=== PATIENT | male | born 1965 | race Caucasian/White ===

== ENCOUNTER → 2017-01-12 | Outpatient (CLI) | payer OTHER ==
[2017-01-15 21:38] LABS: HEPATITIS C RNA TMA QUAL Detected
== END ==
LOC: C.LABUPHEI 10:23
PROVIDERS: ATTEND Nurse Practitioner Family
DX: M62.81 Muscle weakness (generalized) (principal)

== ENCOUNTER → 2017-01-14 | Outpatient (CLI) | payer OTHER ==
[2017-01-14 10:03] LABS: BASO ABS # 0.07 K/uL (0-0.2); COMPLETE YES; EOS % 3.3 %; HEMATOCRIT 39.3 % (42-52); IG% 0.1 %; LYMPH % 39.7 %; LYMPH ABS # 2.87 K/uL (1.2-3.4); MEAN CELL VOLUME 101.3 fL (80-100); MEAN CORPUSCULAR HGB CONC 33.6 g/dl (32-36); MEAN PLATELET VOLUME 10.5 fL (7.4-10.4); MONO % 11.6 %; NEUT % 44.3 %; PLATELET COUNT 258 K/uL (130-400); RED BLOOD COUNT 3.88 M/uL (4.7-6.1); WHITE BLOOD COUNT 7.23 K/uL (4.8-10.8)
[2017-01-14 10:44] LABS: ALT/SGPT 91 U/L (12-78); AST/SGOT 38 U/L (15-37); BLOOD UREA NITROGEN 17 mg/dl (7-18); BUN/CREATININE RATIO 16.9 (10-20); CALCIUM 8.8 mg/dl (8.5-10.1); CARBON DIOXIDE 24 mmol/L (21-32); CHLORIDE 108 mmol/L (98-107); GLUCOSE 106 mg/dl (70-99); POTASSIUM 3.7 mmol/L (3.5-5.1); SODIUM 142 mmol/L (136-145)
[2017-01-14 10:47] LABS: ALB/GLOB RATIO 0.7 (0.9-2); ALKALINE PHOSPHATASE 62 U/L (45-117)
[2017-01-16 11:39] LABS: HEPATITIS C VIRAL RNA(LOG) PCR 5.78 LOG IU/ML (<1.18)
== END ==
LOC: C.LABUPHEI 09:14
PROVIDERS: ATTEND Family Medicine
DX: F10.239 Alcohol dependence with withdrawal, unspecified (principal)

== ENCOUNTER → 2017-02-10 | Outpatient (CLI) | payer OTHER ==
[2017-02-10 12:12] LABS: BASO % 0.9 %; BASO ABS # 0.06 K/uL (0-0.2); COMPLETE YES; EOS % 2.8 %; HEMATOCRIT 43.6 % (42-52); IG% 0.1 %; LYMPH ABS # 2.35 K/uL (1.2-3.4); MEAN CORPUSCULAR HEMOGLOBIN 33.7 pg (25-34); MEAN CORPUSCULAR HGB CONC 34.4 g/dl (32-36); MEAN PLATELET VOLUME 10.6 fL (7.4-10.4); MONO % 9.2 %; PLATELET COUNT 246 K/uL (130-400); RED BLOOD COUNT 4.45 M/uL (4.7-6.1); WHITE BLOOD COUNT 6.71 K/uL (4.8-10.8)
[2017-02-10 12:20] LABS: PROTHROMBIN TIME (PATIENT) 10.9 SECONDS (9.0-12.0)
[2017-02-10 12:33] LABS: BENZODIAZEPINE, URINE NEG (NEG); COCAINE,URINE NEG (NEG); PHENCYCLIDINE, URINE NEG (NEG)
[2017-02-10 12:39] LABS: ALT/SGPT 147 U/L (12-78); BLOOD UREA NITROGEN 16 mg/dl (7-18); BUN/CREATININE RATIO 14.4 (10-20); CALCIUM 9.5 mg/dl (8.5-10.1); CARBON DIOXIDE 23 mmol/L (21-32); CHLORIDE 108 mmol/L (98-107); GLUCOSE 121 mg/dl (70-99); POTASSIUM 3.6 mmol/L (3.5-5.1); SODIUM 139 mmol/L (136-145)
[2017-02-10 12:42] LABS: ALB/GLOB RATIO 0.7 (0.9-2); ALKALINE PHOSPHATASE 64 U/L (45-117); AST/SGOT 87 U/L (15-37)
[2017-02-14 17:28] LABS: HEPATITIS C VIRAL RNA BY PCR 496000 IU/ML (<15); LIVER FIBR APOLIPOPROTEIN A-1 91 mg/dL (94-176); LIVER FIBROS ALPHA-2-MACROGLOB 428 mg/dL (106-279); LIVER FIBROSIS GGT 71 U/L (3-95); NECROINFLAMMATION ACT GRADE A3; NECROINFLAMMATION ACT SCORE 0.78
== END | disposition home or self-care (01) ==
LOC: C.LAB1850 10:57
PROVIDERS: ATTEND Internal Medicine Infectious Disease
DX: Z00.00 Encounter for general adult medical examination without abnormal findings (principal); B18.2 Chronic viral hepatitis C

== ENCOUNTER → 2017-02-24 | Outpatient (CLI) | payer OTHER | END | disposition home or self-care (01) | LOC: C.LAB1850 10:50 | PROVIDERS: ATTEND Internal Medicine Infectious Disease | DX: B18.2 Chronic viral hepatitis C (principal) ==

== ENCOUNTER 2017-04-21 13:25 | Inpatient (IN) | payer OTHER ==
[~2017-04-21] VITALS: Ht 182.9 cm; Wt 105.9 kg
[2017-04-21] MEDS ORDERED: PROPOFOL IV EMULSION 10 MG/ML 100 ML VIAL IV ONE (13:33)
[2017-04-21] MEDS ORDERED: SODIUM CHLORIDE 0.9% 250ML 250 ML IV STA (13:33)
[2017-04-21] MEDS ORDERED: SODIUM CHLORIDE 0.9% 1000ML 1,000 ML IV STA (13:33)
--- NOTE | 2017-04-21 13:36 | EMERGENCY ROOM VISIT NOTE ---
History Report prepared by Lisa: Akosua Menard Under the Supervision of: Dr. Kaleigh Munguia M.D. First contact with patient: 13:23 Chief Complaint: CHOKING Stated Complaint: RESPIRATORY/INTUBATED History of Present Illness The patient is a 51 year old male who presents to the Emergency Room with complaints of choking occurring shortly prior to arrival. Per EMS, the patient was standing upon arrival with coarse respiratory sounds on non-rebreather. EMS states that 3 large pieces of pork chop were removed from the patient's trachea. Per EMS, the patient was then intubated. The patient was given 3 versed , 50 ketamine, and 80 rocuronium prior to arrival. Limited HPI secondary due intubation. Source of History: EMS History Limited By: intubation Onset: shortly prior to arrival Position: other (global) Quality: other (choking) Review of Systems Limited ROS secondary to intubation. Past Medical & Surgical Medical Problems: (1) Respiratory arrest Unable to obtain medical history sheet secondary to intubation. Family History Unable to obtain medical history sheet secondary to intubation. Social History Alcohol Use: none Drug Use: none Marital Status: in relationship Housing Status: long term Occupation Status: disabled Unable to obtain medical history sheet secondary to intubation. Current/Historical Medications Scheduled Aspirin (Aspirin Adult Low Dose), 81 MG PO DAILY Benztropine Mesylate (Benztropine Mesylate), 0.5 MG PO DAILY Clindamycin Hcl (Cleocin), 2 CAP PO TID Clopidogrel (Plavix), 75 MG PO QAM Divalproex Sodium (Depakote Er), 250 MG PO DAILY Folic Acid (Folvite), 1 MG PO DAILY Gabapentin (Neurontin), 300 MG PO BID Levofloxacin (Levaquin), 1 TAB PO DAILY Lisinopril (Zestril), 40 MG PO DAILY Mirtazapine Soltab (Remeron Soltab), 30 MG PO HS Multivitamin (Multivitamin), 1 TAB PO DAILY Olanzapine (Zyprexa), 10 MG PO HS Quetiapine Fumarate (Seroquel), 50 MG PO BID Thiamine Hcl (Vitamin B-1), 100 MG PO DAILY Allergies Coded Allergies: No Known Allergies (Unverified , 04/21/17) Physical Exam Vital Signs Date Time Temp Pulse Resp B/P (MAP) Pulse Ox O2 Delivery O2 Flow Rate FiO2 04/21/17 15:41 97/65 04/21/17 15:36 93/66 04/21/17 15:31 77 14 91/68 97 04/21/17 15:26 107/85 04/21/17 15:21 99/68 04/21/17 15:16 77 14 94/70 98 04/21/17 15:14 36.5 77 13 94/70 98 Oxymask 6.0 04/21/17 15:11 97/69 04/21/17 15:06 96/73 04/21/17 15:01 95/65 04/21/17 15:00 85 16 97 04/21/17 14:55 92 17 95 04/21/17 14:50 105 15 95 04/21/17 14:47 118/88 04/21/17 14:45 104 18 94 04/21/17 14:40 96 18 95 04/21/17 14:35 100 14 127/81 94 04/21/17 14:31 118/82 04/21/17 14:30 98 15 127/81 94 Mechanical Ventilator 50 04/21/17 14:30 99 17 95 04/21/17 14:29 120/86 04/21/17 14:25 0 04/21/17 14:20 0 04/21/17 14:15 119 161/115 95 Mechanical Ventilator 50 04/21/17 14:15 22 04/21/17 14:14 161/115 04/21/17 14:13 188/128 04/21/17 14:10 107 18 94 04/21/17 14:05 104 18 95 04/21/17 14:02 122/89 04/21/17 14:00 103 18 91 04/21/17 13:55 106 16 94 04/21/17 13:50 110 19 94 04/21/17 13:50 94 04/21/17 13:46 145/93 04/21/17 13:45 109 18 94 04/21/17 13:40 112 20 94 04/21/17 13:35 112 16 94 04/21/17 13:34 50 04/21/17 13:31 158/98 04/21/17 13:30 108 04/21/17 13:30 105 18 95 04/21/17 13:29 95 Mechanical Ventilator 50 95 04/21/17 13:29 136/100 04/21/17 13:29 108 18 120/93 95 Mechanical Ventilator 50 04/21/17 13:27 120/93 Physical Exam Vital signs reviewed. General: Critically ill male. Intubated. HEENT: No scleral icterus, PERRLA, neck supple. Atraumatic. Cardiovascular: Regular rate and rhythm, no extra sounds. Pulmonary: Clear to auscultation bilaterally, normal work of breathing. Abdomen: Soft, nontender, nondistended, positive bowel sounds. Musculoskeletal: Atraumatic, no peripheral edema. Neurologic: Sedated. Unable to follow commands due to medications. Skin: Warm, dry, no rash Medical Decision & Procedures ER Provider Diagnostic Interpretation: Radiology results as stated below per my review and radiologist interpretation: HEAD WITHOUT CONTRAST (CT) CT DOSE: 537.48 mGy.cm HISTORY: Trauma intubation, aspiration TECHNIQUE: Multiaxial CT images of the head were performed without the use of intravenous contrast. A dose lowering technique was utilized adhering to the principles of ALARA. Comparison: None. Findings: Considerable hypertrophic change of the nasal turbinates. Trace fluid within the right maxillary sinus. Considerable soft tissue edematous change of the posterior nasal and oropharynx. Brain demonstrates areas of encephalomalacia of the temporal lobe and inferior frontal lobe regions. A small focus of encephalomalacia over the left frontal and right parietal occipital region is also present. These are considered nonacute. There is no midline shift. The calvarium and skull base are intact. The ventricles and sulci are within normal limits. There is no mass, hematoma, midline shift, or acute infarct. Impression: 1. Findings consistent with old posttraumatic or postischemic changes involving the temporal lobe regions, final lobes, as well as right parietal occipital lobe. 2. No acute intracranial abnormality. 3. Edematous change of the structures of the posterior and mid nasopharyngeal and superior oropharyngeal region. The above report was generated using voice recognition software. It may contain grammatical, syntax or spelling errors. Electronically signed by: Kevin Valentine M.D. 04/21/2017 2:31 PM Dictated Date/Time: 04/21/2017 2:29 PM CHEST ONE VIEW PORTABLE HISTORY: 51 years-old Male aspiration acute aspiration COMPARISON: None available TECHNIQUE: Supine AP view of the chest FINDINGS: Cardiac silhouette is within normal limits. Endotracheal tube is present overlying the midline, 5.5 cm superior to the edita. Lungs are hypoinflated with hazy opacities noted throughout the left lung, notably within the perihilar distribution. The patient is slightly rotated to the left. Ill-defined left basilar opacity is also noted. The right lung is generally clear. No pneumothorax or large pleural effusion. The bones are grossly intact. There is gaseous distention of the stomach. IMPRESSION: 1. Endotracheal tube terminates 5.5 cm superior to the edita. 2. Hypoinflated lungs with bronchovascular crowding, hazy left perihilar and left basilar opacities suggesting atelectasis or pneumonitis. 3. Mild gaseous distention of the stomach. The above report was generated using voice recognition software. It may contain grammatical, syntax or spelling errors. Electronically signed by: Mane Durand M.D. 04/21/2017 1:52 PM Dictated Date/Time: 04/21/2017 1:50 PM Laboratory Results Date/Time Source Procedure Growth Status 04/21/17 00:00 Nasal MRSA DNA Surveillance Screen - Final Specimen Negative for MRSA by DNA Probe Complete Laboratory results per my review. Medications Administered Medications (Trade) Dose Ordered Sig/Estrella Route Start Time Stop Time Status Last Admin Dose Admin Propofol (Diprivan Iv Emulsion 100ml Vial) 1 dose UD PRN IV 04/21/17 13:45 04/21/17 17:01 DC 04/21/17 13:47 1 DOSE Sodium Chloride 1,000 ml @ 125 mls/hr Q8H STAT IV 04/21/17 13:33 04/21/17 17:01 DC 04/21/17 13:48 125 MLS/HR Sodium Chloride 250 ml @ 999 mls/hr Q16M STAT IV 04/21/17 13:33 04/21/17 13:48 DC 04/21/17 13:33 999 MLS/HR ECG Indication: other (respiratory arrest) Rate (beats per minute): 98 Rhythm: normal sinus Findings: no acute ischemic change, no ectopy, other (left axis deviation) ED Course 1328: Past medical records reviewed. The patient was evaluated in room B1. A complete history and physical examination was performed. 1333: Ordered Sodium Chloride 250 ml @ 999 mls/hr IV, Sodium Chloride 1,000 ml @ 125 mls/hr IV, Propofol 1 dose IV. 1345: Ordered Propofol 1 dose IV. 1440: The patient will be extubated. 1445: I reviewed the patient's case with Dara NAVAS. She will evaluate the patient for further management. 1505: I checked on the patient. 1520: Upon reevaluation, the patient is resting with supplemental O2 in place, extubated and tolerating well. The patient will be evaluated by hospitalist for further management and care. Medical Decision The patient is a 51 year old male who presents to the ED with choking. Differentials include aspiration, cardiac arrhythmia, pneumothorax, and intracranial hemorrhage. This pt was evaluated and appeared to be in no distress. IV access was obtained and lab work was drawn. Pt was placed on the filler shaker. Pt was sedated with a propofol drip. CXR was performed and reveals ETT 5.5 cm above the edita, hypoinflated lungs. CT head was performed and reveals no acute abnl , large previous infarct. IV access had been obtained and lab work reveals a mild bump of troponin and liver enzymes. EKG reveals no acute ischemia, this is likely demand mediated. Pt was difficult to sedate, was breathing on his own and attempting to d/c ETT. Sedation was stopped and respiratory care was called to extubate the patient. He tolerated this well, his mother was at the bedside. His case was d/w the hospitalist service who will evaluate for further management. Medication Reconcilliation Current Medication List: was personally reviewed by me Blood Pressure Screening Patient's blood pressure: Normal blood pressure will be monitored by hospitalist Consults Time Called: 1410 [facility] Call: [phone] I reviewed the patient's case with Dara NAVAS. She will evaluate the patient for further management. Impression Primary Impression: Respiratory failure Additional Impression: Elevated troponin Critical Care I have personally spent greater than 30 minutes of critical care time in the direct management of this patient. This includes bedside care, interpretation of diagnostic studies, and testing, discussion with consultants, patient, and family members, and other required patient management activities. This 30 minutes is in excess of all separately billable procedures. Scribe Attestation The scribe's documentation has been prepared under my direction and personally reviewed by me in its entirety. I confirm that the note above accurately reflects all work, treatment, procedures, and medical decision making performed by me. Departure Information Dispostion Being Evaluated By Hospitalist Prescriptions Clindamycin Hcl (CLEOCIN) 300 Mg Cap 2 CAP PO TID for 2 Days, #12 CAP 0 Refills Prov: Bryon Alonzo MD 04/23/17 Levofloxacin (LEVAQUIN) 500 Mg Tab 1 TAB PO DAILY for 2 Days, #2 TAB 0 Refills Prov: Bryon Alonzo MD 04/23/17 Referrals Nelson Vann M.D. (PCP) Patient Instructions My [facility] Problem Qualifiers
[2017-04-21] MEDS ORDERED: PROPOFOL IV EMULSION 10 MG/ML 100 ML VIAL IV PRN (13:45)
--- NOTE | 2017-04-21 13:54 | DIAGNOSTIC IMAGING REPORT ---
CHEST ONE VIEW PORTABLE HISTORY: 51 years-old Male aspiration acute aspiration COMPARISON: None available TECHNIQUE: Supine AP view of the chest FINDINGS: Cardiac silhouette is within normal limits. Endotracheal tube is present overlying the midline, 5.5 cm superior to the edita. Lungs are hypoinflated with hazy opacities noted throughout the left lung, notably within the perihilar distribution. The patient is slightly rotated to the left. Ill-defined left basilar opacity is also noted. The right lung is generally clear. No pneumothorax or large pleural effusion. The bones are grossly intact. There is gaseous distention of the stomach. IMPRESSION: 1. Endotracheal tube terminates 5.5 cm superior to the edita. 2. Hypoinflated lungs with bronchovascular crowding, hazy left perihilar and left basilar opacities suggesting atelectasis or pneumonitis. 3. Mild gaseous distention of the stomach. The above report was generated using voice recognition software. It may contain grammatical, syntax or spelling errors. Electronically signed by: Mane Durand M.D. 04/21/2017 1:52 PM Dictated Date/Time: 04/21/2017 1:50 PM
[2017-04-21 14:14] LABS: BASO % 0.3 %; BASO ABS # 0.03 K/uL (0-0.2); COMPLETE YES; EOS % 1.3 %; HEMATOCRIT 43.8 % (42-52); IG% 0.4 %; LYMPH % 20.4 %; LYMPH ABS # 1.84 K/uL (1.2-3.4); MEAN CELL VOLUME 97.1 fL (80-100); MEAN CORPUSCULAR HEMOGLOBIN 33.5 pg (25-34); MEAN CORPUSCULAR HGB CONC 34.5 g/dl (32-36); MEAN PLATELET VOLUME 10.5 fL (7.4-10.4); MONO % 10.2 %; NEUT % 67.4 %; PLATELET COUNT 206 K/uL (130-400); RED BLOOD COUNT 4.51 M/uL (4.7-6.1); WHITE BLOOD COUNT 9.01 K/uL (4.8-10.8)
[2017-04-21 14:32] LABS: BUN/CREATININE RATIO 10.6 (10-20); CALCIUM 8.8 mg/dl (8.5-10.1); CREATININE 1.26 mg/dl (0.60-1.40); MAGNESIUM 2.2 mg/dl (1.8-2.4); POTASSIUM 3.5 mmol/L (3.5-5.1)
--- NOTE | 2017-04-21 14:33 | DIAGNOSTIC IMAGING REPORT ---
HEAD WITHOUT CONTRAST (CT) CT DOSE: 537.48 mGy.cm HISTORY: Trauma intubation, aspiration TECHNIQUE: Multiaxial CT images of the head were performed without the use of intravenous contrast. A dose lowering technique was utilized adhering to the principles of ALARA. Comparison: None. Findings: Considerable hypertrophic change of the nasal turbinates. Trace fluid within the right maxillary sinus. Considerable soft tissue edematous change of the posterior nasal and oropharynx. Brain demonstrates areas of encephalomalacia of the temporal lobe and inferior frontal lobe regions. A small focus of encephalomalacia over the left frontal and right parietal occipital region is also present. These are considered nonacute. There is no midline shift. The calvarium and skull base are intact. The ventricles and sulci are within normal limits. There is no mass, hematoma, midline shift, or acute infarct. Impression: 1. Findings consistent with old posttraumatic or postischemic changes involving the temporal lobe regions, final lobes, as well as right parietal occipital lobe. 2. No acute intracranial abnormality. 3. Edematous change of the structures of the posterior and mid nasopharyngeal and superior oropharyngeal region. The above report was generated using voice recognition software. It may contain grammatical, syntax or spelling errors. Electronically signed by: Kevin Valentine M.D. 04/21/2017 2:31 PM Dictated Date/Time: 04/21/2017 2:29 PM
[2017-04-21 14:39] LABS: CKMB/CK RATIO 0.8 (0-3.0)
[2017-04-21] MEDS ORDERED: ASPI-589 PO (14:56)
[2017-04-21] MEDS ORDERED: CLOP1TAB15 PO (14:56)
[2017-04-21] MEDS ORDERED: FOLI1TAB7 PO (14:56)
[2017-04-21] MEDS ORDERED: MIRT30TA2 PO (14:56)
[2017-04-21] MEDS ORDERED: DIVA250T PO (14:56)
[2017-04-21] MEDS ORDERED: LISI40TA PO (14:56)
[2017-04-21] MEDS ORDERED: AMLO-114 PO (14:56)
[2017-04-21] MEDS ORDERED: QUET1TAB32 PO (14:56)
[2017-04-21] MEDS ORDERED: GABA-113 PO (14:56)
[2017-04-21] MEDS ORDERED: BENZ0.5T2 PO (14:56)
[2017-04-21] MEDS ORDERED: THIA100T11 PO (14:56)
[2017-04-21] MEDS ORDERED: OLAN10TA11 PO (14:56)
[2017-04-21] MEDS ORDERED: HYDR12.55 PO (14:56)
[2017-04-21] MEDS ORDERED: MULT-506 PO (14:56)
[2017-04-21] MEDS ORDERED: ACETAMINOPHEN 325 MG TAB PO PRN (16:15)
[2017-04-21] MEDS ORDERED: ONDANSETRON INJ 2 MG/ML 2 ML VIAL IV PRN (16:15)
--- NOTE | 2017-04-21 16:52 | DIAGNOSTIC IMAGING REPORT ---
(CHEST) THORAX WITHOUT CT DOSE: 730.53 mGy.cm HISTORY: Choking episode. r/o residual foreign body TECHNIQUE: Multiaxial CT images of the chest were performed without contrast. A dose lowering technique was utilized adhering to the principles of ALARA. COMPARISON: Chest 04/21/2017. FINDINGS: Mild motion artifact. This is most pronounced within the lower lobes. Trace mucoid material within the distal trachea and right mainstem bronchus. Small focal areas of consolidation seen within the base of the lower lobes posteriorly. No pneumothorax. No fractures within the visualized osseous structures. The visualized liver, spleen, and adrenal glands are unremarkable. Tiny fat-containing midline epigastric hernia. No radiopaque foreign bodies. The esophagus is normal in course and caliber. No mediastinal or hilar lymphadenopathy. Normal caliber thoracic aorta. The heart is normal in size. Mild calcified plaque within the coronary arteries. IMPRESSION: 1. Trace mucoid material within the distal trachea and right mainstem bronchus. 2. Small focal areas of consolidation within the bases of the lower lobes posteriorly. This could represent atelectasis or pneumonia, possibly secondary to aspiration. Electronically signed by: Chinmay Pickett M.D. 04/21/2017 4:51 PM Dictated Date/Time: 04/21/2017 4:45 PM
[2017-04-21] MEDS: LEVALBUTEROL 1.25MG/0.5ML NEB INH SCH ×2 (17:00→19:11)
[2017-04-21] MEDS: CLINDAMYCIN IV 600 MG in DEXTROSE 5% 50ML 50 ML IV SCH (17:25)
[2017-04-21] MEDS: NSS + 20MEQ KCL 1000ML 1,000 ML IV SCH (17:25)
[2017-04-21 17:26] VITALS: Ht 182.9 cm; Wt 105.9 kg
[2017-04-21] MEDS: LEVOFLOXACIN / D5W 500 MG in PREMIXED IN D5W 100 ML IV SCH (18:00)
[2017-04-21 19:12] VITALS: PULSE 65; O2SAT 98
[2017-04-21 19:19] VITALS: BP 93/63; PULSE 67; TEMP 36.8; O2SAT 97
[2017-04-21 20:00] VITALS: O2SAT 97
[2017-04-21 20:23] LABS: CKMB/CK RATIO 1.7 (0-3.0)
[2017-04-21] MEDS: QUETIAPINE FUMARATE 25 MG TAB PO SCH (21:16)
[2017-04-21] MEDS: MIRTAZAPINE SOLTAB 15 MG PO SCH (21:17)
[2017-04-21] MEDS: OLANZAPINE 10 MG TAB PO SCH (21:17)
[2017-04-21] MEDS: GABAPENTIN 300 MG CAP PO SCH (21:17)
--- NOTE | 2017-04-21 22:46 | HISTORY & PHYSICAL EXAMINATION ---
DATE OF ADMISSION: 04/21/2017 TIME: 8:21 p.m. HISTORY OF PRESENT ILLNESS: The patient history had been obtained from the patient and ____ with the patient's , Winter, at the bedside. The patient is a pleasant 51-year-old male, a resident of [facility] with a history of recent stroke in October 2016, hypertension, presenting with respiratory arrest. Apparently, the patient was having lunch at around noontime when he walked of the dining room, "choking". The staff at the custodial did a Heimlich maneuver and afterwards, the patient was noted to be wheezing and was having stridor. EMS was called. The patient was en route to the hospital, was noted to have respiratory arrest, intubation immediately performed and apparently, during the procedure, pieces of food were obtained. He was sedated during admission. Upon arrival at the ER, the patient's vital signs were as follows: Blood pressure 120/93, pulse rate of 108, saturating 94% on a mechanical ventilator with 50% FiO2. During observation at the ER, the patient started to awaken and was becoming restless, fighting the vent. Hence, the decision was made to activate the patient. Upon activation, the patient was doing well on an oxygen mask vent and nasal cannula, saturating 97% on room air. The patient has received propofol and normal saline at the ER. On my exam, the patient has been examined with the patient's , Winter, at the bedside. The patient was already awake, alert, oriented x2, has good recall of events prior to coming to the hospital. He was denying any active shortness of breath, but reports a few-day history of cough, no fever or chills. He was denying any chest pain, dizziness, headaches, abdominal pain, problems with urination or bowel movement. No other symptoms noted. PERSONAL AND SOCIAL HISTORY: The patient is a user of _[facility] facility after his stroke in October 2016. PAST MEDICAL HISTORY: History of a stroke in October 2016, hypertension, history of drug overdose. MEDICATIONS: The patient takes aspirin 81 mg daily, Plavix 75 mg daily, amlodipine 10 mg daily, HCTZ 25 mg daily, lisinopril 40 mg daily, Depakote 250 mg p.o. daily, gabapentin 300 mg b.i.d., Olanzapine 10 mg daily, Seroquel 50 mg b.i.d. PAST SURGICAL HISTORY: To be obtained. PERSONAL AND SOCIAL HISTORY: History of drug abuse in the past. REVIEW OF SYSTEMS: All 10 systems reviewed and negative, except for the ones mentioned above. PHYSICAL EXAMINATION: VITAL SIGNS: On my examination, blood pressure 94/70, pulse rate 77, respiratory rate of 14, temperature of 36.5, saturating 98% on nasal cannula. GENERAL: The patient is awake, alert, oriented x2, not in distress, speaks in sentences. No accessory muscle use. HEAD AND NECK: Atraumatic and normocephalic. Normal pupils. Full EOMs. No icterus. [place] conjunctivae. ENT: Grossly normal. NECK: No JVD, no lymphadenopathy or thyromegaly. HEART: Normal rate. Regular rhythm. No murmurs. LUNGS: Positive for mild rales at the left base. No wheezing. Good air entry bilaterally. ABDOMEN: Nondistended, soft and nontender. EXTREMITIES: No pedal edema. No rashes noted. NEUROLOGIC: Oriented x3. Cranial nerves II-XII grossly intact. Motor is 5/5 in all extremities. Extension is 100% in all extremities. As per mother, the patient has had poor short-term memory since the stroke and has had some behavioral disturbance as well. LABS: White count ____, hemoglobin 15.1, platelet count is 206. Chemistry: Sodium 137, potassium 3.5, BUN 13, creatinine is 1.26, random glucose 150, magnesium 2.2. AST 77, ALT 132. Troponins 0.082, CK-MB 1.0. IMAGING: Chest x-ray showing an ET-tube terminating ____ edita, hyperinflated lungs bronchovascular crowding, ____ left perihilar, left basilar opacities suggestive of atelectasis or pneumonitis, mild gaseous distention of the stomach. CT head consistent with old posttraumatic and/or post-ischemic changes involving the temporal lobe, right parietal occipital lobe. No acute intracranial abnormality. EKG: Heart rate 98, normal sinus rhythm, no signs of acute ischemia or infarct. ASSESSMENT AND PLAN: This is a 51-year-old male with a history of an acute CVA in October 2016, hypertension, history of drug overdose, possible underlying depression, currently residing the [facility] custod[facility], presenting with a respiratory arrest following a choking episode. 1. Acute respiratory arrest, secondary to a choking episode resolved, status post intubation and extubation within a few hours. 2. At this time, the patient appears to be in stable condition with good oxygenation, status post extubation. We will continue to monitor him closely at the telemetry unit, a speech therapy evaluation will be ordered and for the meantime, he will be placed on a clear liquid diet. The patient has also been evaluated by the intensive care service at the Emergency Room and was deemed fit to be admitted to the telemetry unit for now. 3. Possible left-sided pneumonia, health care associated versus aspiration, as the patient resides in a custodial and has had a stroke event. Currently, the patient is not exhibiting any signs of sepsis and is oxygenating well. We will order a CT chest to further characterize the pneumonia. Also to rule out any remaining foreign bodies. We will start the patient on empiric Levaquin and clindamycin with intravenous fluids and nebulizers q. 6 hours. 4. Mild troponin elevation, likely secondary to respiratory arrest. We will trend patient's cardiac markers and repeat an echo in the morning. An echocardiogram shall be ordered as well. 5. Mild elevation of the LFTs. We will continue to trend for now. 6. History of a cerebrovascular accident, occurred in October 2016. No new focal neurologic deficits. 7. Continue the usual aspirin and Plavix. We will continue to monitor. 8. Hypertension, stable. We will hold amlodipine, lisinopril and HCTZ, as the patient's blood pressure is on the lower side after propofol. We will continue to monitor. 9. Possible underlying psychiatric history with a possible mood disorder. Continue Depakote, olanzapine and Seroquel. 10. Deep venous thrombosis prophylaxis. We will place SCDs for now. May need heparin, Lovenox if he will be admitted longer. CODE STATUS: The patient's a code status has been discussed with the patient's , Winter, at length. She has reiterated that the patient is a full code at this time. We will obtain social service assistance in terms of patient's code status, as, apparently, the patient could be ____. DISPOSITION: The patient is a [facility] resident and anticipates to return to [facility] when medically stable. The case has been discussed with the patient's at length and in detail. All questions have been answered. She is comfortable, understanding with the plan of care.
[2017-04-21 23:31] VITALS: BP 94/64; PULSE 56; TEMP 36.8; O2SAT 98
[2017-04-22] VITALS (10 sets, daily range): BP systolic 97–119; BP diastolic 60–80; PULSE 56–79; TEMP 36.6–36.8; O2SAT 93–99
[2017-04-22] MEDS: CLINDAMYCIN IV 600 MG in DEXTROSE 5% 50ML 50 ML IV SCH ×3 (01:06→17:00)
[2017-04-22] MEDS: NSS + 20MEQ KCL 1000ML 1,000 ML IV SCH ×3 (01:06→17:30)
[2017-04-22 01:21] LABS: CKMB/CK RATIO 1.6 (0-3.0)
[2017-04-22 05:39] LABS: BASO % 0.4 %; BASO ABS # 0.03 K/uL (0-0.2); COMPLETE YES; HEMATOCRIT 37.6 % (42-52); IG% 0.2 %; LYMPH % 40.3 %; LYMPH ABS # 3.26 K/uL (1.2-3.4); MEAN CELL VOLUME 97.4 fL (80-100); MEAN CORPUSCULAR HEMOGLOBIN 33.4 pg (25-34); MEAN CORPUSCULAR HGB CONC 34.3 g/dl (32-36); MEAN PLATELET VOLUME 10.3 fL (7.4-10.4); MONO % 9.7 %; NEUT % 48.4 %; PLATELET COUNT 169 K/uL (130-400); RED BLOOD COUNT 3.86 M/uL (4.7-6.1); WHITE BLOOD COUNT 8.08 K/uL (4.8-10.8)
[2017-04-22 06:09] LABS: BUN/CREATININE RATIO 8.9 (10-20); CALCIUM 7.7 mg/dl (8.5-10.1); CREATININE 1.2 mg/dl (0.60-1.40); POTASSIUM 3.5 mmol/L (3.5-5.1)
[2017-04-22 06:33] LABS: ALB/GLOB RATIO 0.7 (0.9-2)
[2017-04-22] MEDS: LEVALBUTEROL 1.25MG/0.5ML NEB INH SCH ×3 (07:36→19:27)
[2017-04-22] MEDS: CLOPIDOGREL BISULFATE 75 MG TAB PO SCH (08:21)
[2017-04-22] MEDS: GABAPENTIN 300 MG CAP PO SCH ×2 (08:22→21:10)
[2017-04-22] MEDS: ASPIRIN 81 MG ECTAB PO SCH (08:22)
[2017-04-22] MEDS: DIVALPROEX 250 MG EXTENDED REL TAB PO SCH (08:22)
[2017-04-22] MEDS: BENZTROPINE MESYLATE 0.5 MG TAB PO SCH (08:22)
[2017-04-22] MEDS: QUETIAPINE FUMARATE 25 MG TAB PO SCH ×2 (08:23→21:10)
--- NOTE | 2017-04-22 11:11 | ECHOCARDIOGRAM REPORT ---
*NOTICE TO RECEIVING [employer] AGENCY This information is strictly Confidential and protected under [place] law. [place] law prohibits you from making any further disclosure of this information unless further disclosure is expressly permitted by the written consent of the person to whom it pertains or is authorized by law. A general authorization for the release of medical or other information is not sufficient for this purpose. Hospital accepts no responsibility if the information is made available to any other person, INCLUDING THE PATIENT. Interpretation Summary * Name: CURTIS SHARMA Study Date: 04/22/2017 07:11 AM BP: 97/60 mmHg * Patient Location: C.2E\S\E207\S\1 HR: 56 * : 1965 (M/d/yyyy) Gender: Male Height: 72 in * Age: 51 yrs Ethnicity: CA Weight: 240 lb * Ordering Physician: Bryon Alonzo * Referring Physician: Kalina Arellano * Performed By: Nuno Merino RCS * * Reason For Study: Elevated Troponin, S/P Respiratory Arrest * BSA: 2.3 m2 * The study was technically difficult. * There is no comparison study available. * -- Conclusions -- * Ejection Fraction = 55-60%. * There is mild concentric left ventricular hypertrophy. * The apical inferior septum appears thinned and hypokinetic. * No significant valvular pathology visuailzed. * Consider repeat study with IV contrast to improve endocardial resolution. Procedure Details * A complete two-dimensional transthoracic echocardiogram was performed (2D, M-mode, Doppler and color flow Doppler). Left Ventricle * The left ventricle is grossly normal size. * There is mild concentric left ventricular hypertrophy. * Left ventricular systolic function is normal. * Ejection Fraction = 55-60%. * The apical inferior septum appears thinned and hypokinetic. Right Ventricle * The right ventricle is normal size. * The right ventricular systolic function is normal as assessed by tricuspid annular plane systolic excursion (TAPSE) (normal >1.5 cm). Atria * The left atrial size is normal. * Right atrial size is normal. * There is no evidence of atrial septal defect, but resolution does not allow assessment for a patent foramen ovale. Mitral Valve * The mitral valve is normal. * There is no mitral valve stenosis. * Significant mitral regurgitation is absent. Tricuspid Valve * The tricuspid valve is normal. * There is no tricuspid stenosis. * There is trace tricuspid regurgitation. * Doppler findings do not suggest pulmonary hypertension. Aortic Valve * The aortic valve is not well visualized. * Aortic stenosis is absent. * There is no significant aortic regurgitation. Pulmonic Valve * The pulmonary valve is not well seen, but the Doppler examination is normal without significant regurgitation or stenosis. Great Vessels * The aortic root is normal size. Pericardium/Pleural * There is no pericardial effusion. Great Vessels * Normal inferior vena cava diameter and respiratory variation suggests normal central venous pressure. Left Ventricular Diastolic Function * Pulse wave TDI of the anterior and posterior mitral annulas demonstrates normal LV relaxation MMode 2D Measurements and Calculations IVSd 1.3 cm IVSs 1.4 cm LVIDd 4.0 cm LVIDs 2.5 cm LVPWd 1.3 cm LVPWs 1.6 cm IVS/LVPW 1.0 FS 37.4 % EDV(Teich) 69.3 ml ESV(Teich) 22.1 ml EF(Teich) 68.1 % EDV(cubed) 63.2 ml ESV(cubed) 15.5 ml EF(cubed) 75.5 % % IVS thick 10.9 % % LVPW thick 21.2 % LV mass(C)d 184.6 grams LV mass(C)dI 80.2 grams/m\S\2 LV mass(C)s 126.0 grams LV mass(C)sI 54.8 grams/m\S\2 SV(Teich) 47.2 ml SI(Teich) 20.5 ml/m\S\2 SV(cubed) 47.7 ml SI(cubed) 20.7 ml/m\S\2 asc Aorta Diam 3.3 cm EDV(MOD-sp4) 97.0 ml ESV(MOD-sp4) 38.0 ml EF(MOD-sp4) 60.8 % EDV(MOD-sp2) 79.0 ml ESV(MOD-sp2) 37.0 ml EF(MOD-sp2) 53.2 % SV(MOD-sp4) 59.0 ml SI(MOD-sp4) 25.6 ml/m\S\2 SV(MOD-sp2) 42.0 ml SI(MOD-sp2) 18.2 ml/m\S\2 Doppler Measurements and Calculations MV E max nusrat 69.0 cm/sec MV A max nusrat 66.9 cm/sec MV E/A 1.0 MV P1/2t max nusrat 85.7 cm/sec MV P1/2t 67.7 msec MVA(P1/2t) 3.2 cm\S\2 MV dec slope 370.8 cm/sec\S\2 MV dec time 0.36 sec Ao V2 max 128.6 cm/sec Ao max PG 6.6 mmHg Ao max PG (full) 4.9 mmHg LV V1 max PG 1.7 mmHg LV V1 max 66.0 cm/sec PA V2 max 91.2 cm/sec PA max PG 3.3 mmHg TR max nusrat 164.9 cm/sec
--- NOTE | 2017-04-22 12:07 | Progress Note ---
Medicine Progress Note Date & Time of Visit: Apr 22, 2017 at 12:07. Subjective seen resting in bed, alert, oriented x 2 not in distress, comfortable states he feels fine overall denies dyspnea, chest pain, dizziness ,nausea denies any pain keeps repeating, i want food reassured that diet will be advanced after swallow evaluation, he agreed denies other symptoms Objective Last 8 Hrs Date Time Temp Pulse Resp B/P (MAP) Pulse Ox O2 Delivery O2 Flow Rate FiO2 04/22/17 11:40 36.7 60 16 107/64 (78) 99 Room Air 04/22/17 08:18 36.8 59 20 102/80 (87) 93 Room Air 04/22/17 08:00 Room Air Physical Exam: General- oriented x 2, not in distress, speaks in sentences with no effort Head- atraumatic Eyes- PERRL, EOMI, anicteric ENT- oropharynx clear Neck- supple, no JVD, no adenopathy, no thyromegaly Lungs- clear to auscultation and percussion Heart- regular rhythm; no murmur, normal rate Abdomen- normal bowel sounds, soft, nontender Extremities- no pretibial edema, no calf tenderness; peripheral pulses intact Neuro- alert, oriented x 2; no gross focal deficits Skin- warm & dry Laboratory Results: Last 24 Hours Test 04/21/17 13:13 04/21/17 19:42 04/22/17 00:36 04/22/17 05:10 White Blood Count 9.01 K/uL 8.08 K/uL Red Blood Count 4.51 M/uL 3.86 M/uL Hemoglobin 15.1 g/dL 12.9 g/dL Hematocrit 43.8 % 37.6 % Mean Corpuscular Volume 97.1 fL 97.4 fL Mean Corpuscular Hemoglobin 33.5 pg 33.4 pg Mean Corpuscular Hemoglobin Concent 34.5 g/dl 34.3 g/dl Platelet Count 206 K/uL 169 K/uL Mean Platelet Volume 10.5 fL 10.3 fL Neutrophils (%) (Auto) 67.4 % 48.4 % Lymphocytes (%) (Auto) 20.4 % 40.3 % Monocytes (%) (Auto) 10.2 % 9.7 % Eosinophils (%) (Auto) 1.3 % 1.0 % Basophils (%) (Auto) 0.3 % 0.4 % Neutrophils # (Auto) 6.06 K/uL 3.91 K/uL Lymphocytes # (Auto) 1.84 K/uL 3.26 K/uL Monocytes # (Auto) 0.92 K/uL 0.78 K/uL Eosinophils # (Auto) 0.12 K/uL 0.08 K/uL Basophils # (Auto) 0.03 K/uL 0.03 K/uL RDW Standard Deviation 43.8 fL 44.4 fL RDW Coefficient of Variation 12.4 % 12.6 % Immature Granulocyte % (Auto) 0.4 % 0.2 % Immature Granulocyte # (Auto) 0.04 K/uL 0.02 K/uL Sodium Level 137 mmol/L 137 mmol/L Potassium Level 3.5 mmol/L 3.5 mmol/L Chloride Level 101 mmol/L 107 mmol/L Carbon Dioxide Level 25 mmol/L 27 mmol/L Anion Gap 11.0 mmol/L 3.0 mmol/L Blood Urea Nitrogen 13 mg/dl 11 mg/dl Creatinine 1.26 mg/dl 1.20 mg/dl Est Creatinine Clear Calc Drug Dose 86.5 ml/min 90.2 ml/min Estimated GFR () 75.0 79.5 Estimated GFR (Non- 64.7 68.6 BUN/Creatinine Ratio 10.6 8.9 Random Glucose 150 mg/dl 97 mg/dl Calcium Level 8.8 mg/dl 7.7 mg/dl Magnesium Level 2.2 mg/dl 2.0 mg/dl Total Bilirubin 0.6 mg/dl 0.6 mg/dl Direct Bilirubin 0.2 mg/dl Aspartate Amino Transf (AST/SGOT) 77 U/L 59 U/L Alanine Aminotransferase (ALT/SGPT) 132 U/L 103 U/L Alkaline Phosphatase 69 U/L 51 U/L Total Creatine Kinase 118 U/L 203 U/L 289 U/L Creatine Kinase MB 1.0 ng/ml 3.5 ng/ml 4.7 ng/ml Creatine Kinase MB Ratio 0.8 1.7 1.6 Troponin I 0.082 ng/ml 1.370 ng/ml 1.740 ng/ml 1.400 ng/ml Total Protein 8.8 gm/dl 7.1 gm/dl Albumin 3.7 gm/dl 3.0 gm/dl Activated Partial Thromboplast Time 25.3 SECONDS Partial Thromboplastin Ratio 1.0 Globulin 4.1 gm/dl Albumin/Globulin Ratio 0.7 Assessment & Plan ASSESSMENT AND PLAN: This is a 51-year-old male with a history of an acute CVA in October 2016, hypertension, history of drug overdose, possible underlying depression, currently residing the [facility] skilled nursing, presenting with a respiratory arrest following a choking episode. Acute respiratory arrest, secondary to a choking episode resolved, status post intubation and extubation within a few hours. -- remains stable so far continue to monitor Possible left-sided pneumonia, health care associated versus aspiration, as the patient resides in a skilled nursing and has had a stroke event. - CT chest: IMPRESSION: 1. Trace mucoid material within the distal trachea and right mainstem bronchus. 2. Small focal areas of consolidation within the bases of the lower lobes posteriorly. This could represent atelectasis or pneumonia, possibly secondary to aspiration. -- afebrile, no leukocytosis continue empiric Levaquin + Clinda Day 2 Nebs -- s/p Speech Therapy eval, no signs of chika aspiration, but patient very impulsive with eating recommend dental soft diet -- monitor Mild troponin elevation, likely secondary to respiratory arrest. -- echo: hypokinetic apical septum Cardiology consulted, recommend echo with contrast Mild elevation of the LFTs. -- improving History of a cerebrovascular accident, occurred in October 2016. No new focal neurologic deficits. -- Continue the usual aspirin and Plavix Hypertension -- hold amlodipine, lisinopril and HCTZ, as the patient's blood pressure is on the lower side Possible underlying psychiatric history with a possible mood disorder. Continue Depakote, olanzapine and Seroquel. Deep venous thrombosis prophylaxis. -- SCDs CODE STATUS: The patient's a code status has been discussed with the patient's , Winter, at length. She has reiterated that the patient is a full code at this time. We will obtain social service assistance in terms of patient's code status, as, apparently, the patient could be a [place] of the state. DISPOSITION: The patient is a [facility] resident and anticipates to return to [facility] when medically stable. Current Inpatient Medications: Current Inpatient Medications Medications (Trade) Dose Ordered Sig/Estrella Route Start Time Stop Time Status Last Admin Dose Admin Levofloxacin 500 mg/Prmx 100 ml @ 100 mls/hr Q24H IV 04/21/17 17:00 04/28/17 16:59 04/21/17 18:00 100 MLS/HR Clindamycin Phosphate 600 mg/ Dextrose 54 ml @ 100 mls/hr Q8H IV 04/21/17 17:00 04/28/17 16:59 04/22/17 08:21 100 MLS/HR Potassium Chloride/Sodium Chloride 1,000 ml @ 125 mls/hr Q8H IV 04/21/17 17:30 05/21/17 17:29 04/22/17 11:49 125 MLS/HR Aspirin (Ecotrin Tab) 81 mg DAILY PO 04/22/17 09:00 05/22/17 08:59 04/22/17 08:22 81 MG Benztropine Mesylate (Cogentin Tab) 0.5 mg DAILY PO 04/22/17 09:00 05/22/17 08:59 04/22/17 08:22 0.5 MG Clopidogrel Bisulfate (plAVix TAB) 75 mg QAM PO 04/22/17 09:00 05/22/17 08:59 04/22/17 08:21 75 MG Divalproex Sodium (Depakote Extended Rel Tab) 250 mg DAILY PO 04/22/17 09:00 05/22/17 08:59 04/22/17 08:22 250 MG Gabapentin (Neurontin Cap) 300 mg BID PO 04/21/17 21:00 05/21/17 20:59 04/22/17 08:22 300 MG Olanzapine (Zyprexa Tab) 10 mg HS PO 04/21/17 21:00 05/21/17 20:59 04/21/17 21:17 10 MG Quetiapine Fumarate (seroQUEL TAB) 50 mg BID PO 04/21/17 21:00 05/21/17 20:59 04/22/17 08:23 50 MG Mirtazapine (Remeron Solutab) 30 mg HS PO 04/21/17 21:00 05/21/17 20:59 04/21/17 21:17 30 MG Acetaminophen (Tylenol Tab) 650 mg Q4H PRN PO 04/21/17 16:15 05/21/17 16:14 Ondansetron HCl (Zofran Inj) 4 mg Q6H PRN IV 04/21/17 16:15 05/21/17 16:14 Levalbuterol (Xopenex 1.25MG/ 0.5ML Neb) 1.25 mg Q6RWA INH 04/22/17 09:00 05/21/17 15:59
--- NOTE | 2017-04-22 14:21 | DIAGNOSTIC IMAGING REPORT ---
VIDEO SWALLOW CLINICAL HISTORY: 51 years-old Male presenting with assess for aspiration,, concern for foreign body, choking episode. TECHNIQUE: Video fluoroscopic evaluation of swallowing was performed in the AP and lateral projections in conjunction with speech pathology. The patient was administered various textures, including nectar-thick and thin liquid barium, a barium coated wafer, and barium pudding. COMPARISON: Chest CT from 04/21/2017. FINDINGS: There is normal hyoid excursion and epiglottic deflection. Anterior osteophytosis of the lower cervical spine without significant result on swallowing function. Penetration of thin liquids without aspiration. Penetration of nectar thick liquids without aspiration. No aspiration of pudding consistency or solids. The esophagus is grossly normal without evidence of dysmotility or intraesophageal reflux. Normal passage through the gastroesophageal junction. Fluoroscopy dosage (mGy): Not available. Fluoroscopy time: 1.3 minutes. Number of fluoroscopic spot images: 0. IMPRESSION: 1. No aspiration identified. Penetration of liquids. 2. Please see the speech pathologist report for detailed findings and recommendations. Electronically signed by: Ochoa Coffey M.D. 04/22/2017 2:19 PM Dictated Date/Time: 04/22/2017 2:17 PM
[2017-04-22] MEDS: LEVOFLOXACIN / D5W 500 MG in PREMIXED IN D5W 100 ML IV SCH (15:41)
--- NOTE | 2017-04-22 16:49 | Cardiology Consultation ---
Cardiology Consultation Date of Service Apr 22, 2017. Cardiology Consultation I attempted to see Mr. Aguirre cardiology consultation as per the request of Dr. Alonzo for recommendations regarding echocardiogram findings of wall motion abnormality on his echocardiogram today. The ejection fraction was normal at 55-60%. The apical portion of the inferoseptum was noted to be thin and hypokinetic. The patient was apparently in his normal state of health at the [facility] yesterday when he had a choking event in the cafeteria. Bystanders noted him to be choking. He received abdominal thrusts by a bystander and EMS was summoned. He subsequently had low oxygen saturation and apparently suffered a respiratory arrest. Endotracheal tube was placed in the field, and food particles were removed. The patient essentially transferred to the emergency room and he was subsequently successfully extubated. Since hospitalized yesterday, he has had serial troponin readings that of been elevated at 0.82, 1.37, 1.74, and 1.4 ng/ml respectively. When I went to see him in room 207 at 4:40 PM, he was eating his evening meal with the help of the geriatric nursing assistant. He denied any chest discomfort or shortness of breath. I tried to obtain a past medical history on him, and he was either unwilling or unable to provide much in the way of detail of his past medical history. Per his chart, he is in the senior living due to a past history of stroke. He has not been hospitalized at this institution in the past. The patient of course is considered to be at high risk of aspiration given his recent choking event. He was unwilling to cease eating his food to allow me to examine him or to question him further. I have requested a repeat echocardiogram with ultrasound contrast which will be performed tomorrow for better delineation of the subtle septal wall motion abnormality noted on echocardiogram earlier today. At present, given the patient's lack of clinical symptoms, I would speculate that his elevated troponin is due to myocardial strain in the setting of a profound transient hypoxic event. It is difficult to determine is the echocardiogram findings correlate with his recent event or are old. EKG tracings performed yesterday revealed no significant ST changes on 2 separate tracings performed at 1333 and 20:32. Dr. Blair will be assuming rounding service tomorrow, and further recommendations be forthcoming. I am not billing for today's encounter because evaluation is limited due to lack of patient cooperation.
[2017-04-22] MEDS: MIRTAZAPINE SOLTAB 15 MG PO SCH (21:10)
[2017-04-22] MEDS: OLANZAPINE 10 MG TAB PO SCH (21:11)
[2017-04-23] VITALS (8 sets, daily range): BP systolic 88–133; BP diastolic 54–89; PULSE 55–68; TEMP 36.4–37.4; O2SAT 94–99
[2017-04-23] MEDS: CLINDAMYCIN IV 600 MG in DEXTROSE 5% 50ML 50 ML IV SCH ×2 (00:33→08:37)
[2017-04-23 05:50] LABS: BASO % 0.8 %; BASO ABS # 0.05 K/uL (0-0.2); COMPLETE YES; EOS % 2.6 %; HEMATOCRIT 38.3 % (42-52); IG% 0.2 %; LYMPH % 44.4 %; LYMPH ABS # 2.96 K/uL (1.2-3.4); MEAN CORPUSCULAR HEMOGLOBIN 33.5 pg (25-34); MEAN CORPUSCULAR HGB CONC 34.2 g/dl (32-36); MEAN PLATELET VOLUME 10.6 fL (7.4-10.4); MONO % 8.7 %; NEUT % 43.3 %; PLATELET COUNT 194 K/uL (130-400); RED BLOOD COUNT 3.91 M/uL (4.7-6.1); WHITE BLOOD COUNT 6.66 K/uL (4.8-10.8)
[2017-04-23] MEDS: NSS + 20MEQ KCL 1000ML 1,000 ML IV SCH (06:26)
[2017-04-23 06:31] LABS: BUN/CREATININE RATIO 7.9 (10-20); CALCIUM 7.7 mg/dl (8.5-10.1); CREATININE 1.16 mg/dl (0.60-1.40); MAGNESIUM 2.1 mg/dl (1.8-2.4); POTASSIUM 4.1 mmol/L (3.5-5.1)
[2017-04-23] MEDS: LEVALBUTEROL 1.25MG/0.5ML NEB INH SCH (07:03)
[2017-04-23] MEDS: ASPIRIN 81 MG ECTAB PO SCH (08:35)
[2017-04-23] MEDS: GABAPENTIN 300 MG CAP PO SCH (08:36)
[2017-04-23] MEDS: CLOPIDOGREL BISULFATE 75 MG TAB PO SCH (08:36)
[2017-04-23] MEDS: BENZTROPINE MESYLATE 0.5 MG TAB PO SCH (08:37)
[2017-04-23] MEDS: DIVALPROEX 250 MG EXTENDED REL TAB PO SCH (08:37)
[2017-04-23] MEDS: QUETIAPINE FUMARATE 25 MG TAB PO SCH (08:37)
--- NOTE | 2017-04-23 11:20 | ECHOCARDIOGRAM REPORT ---
*NOTICE TO RECEIVING [employer] AGENCY This information is strictly Confidential and protected under [place] law. [place] law prohibits you from making any further disclosure of this information unless further disclosure is expressly permitted by the written consent of the person to whom it pertains or is authorized by law. A general authorization for the release of medical or other information is not sufficient for this purpose. Hospital accepts no responsibility if the information is made available to any other person, INCLUDING THE PATIENT. Interpretation Summary * Name: CURTIS SHARMA Study Date: 04/23/2017 06:30 AM BP: 88/54 mmHg * Patient Location: C.2E\S\E207\S\1 HR: 59 * : 1965 (M/d/yyyy) Gender: Male Height: 72 in * Age: 51 yrs Ethnicity: [place] Weight: 237 lb * Ordering Physician: Zain Lopez DO, [facility] * Referring Physician: Kalina Arellano * Performed By: Juju Lagunas GABRIEL * * Reason For Study: LIMITED FOLLOW- UP/ REASSESS WALL MOTION WITH CONTRAST * BSA: 2.3 m2 * The study was technically adequate. * -- Conclusions -- * Ejection Fraction = 55-60%. * The left ventricular wall motion is normal. Procedure Details * A contrast injection of Definity was performed to improve assessment of LV function. * Contrast was injected into an intravenous site in the right arm. * One vial of Definity ultrasound contrast was diluted in normal saline to a total volume of 10 ml. A total of '6' ml of solution was administered during imaging. * Lot # [id number] of Definity utilized for procedure. * Expiration date 05/09. Left Ventricle * There is no thrombus. * There is mild concentric left ventricular hypertrophy. * Ejection Fraction = 55-60%. * The left ventricular wall motion is normal. MMode 2D Measurements and Calculations IVSd 1.3 cm IVSs 1.7 cm LVIDd 4.3 cm LVIDs 2.9 cm LVPWd 0.85 cm LVPWs 1.5 cm IVS/LVPW 1.5 FS 31.5 % EDV(Teich) 83.1 ml ESV(Teich) 33.5 ml EF(Teich) 59.7 % EDV(cubed) 79.6 ml ESV(cubed) 25.6 ml EF(cubed) 67.8 % % IVS thick 30.9 % % LVPW thick 79.7 % LV mass(C)d 154.1 grams LV mass(C)dI 67.3 grams/m\S\2 LV mass(C)s 171.1 grams LV mass(C)sI 74.7 grams/m\S\2 SV(Teich) 49.6 ml SI(Teich) 21.7 ml/m\S\2 SV(cubed) 54.0 ml SI(cubed) 23.6 ml/m\S\2 LVAd ap4 35.7 cm\S\2 LVLd ap4 8.9 cm EDV(MOD-sp4) 119.9 ml EDV(sp4-el) 121.3 ml LVAs ap4 20.6 cm\S\2 LVLs ap4 7.2 cm ESV(MOD-sp4) 48.6 ml ESV(sp4-el) 50.0 ml EF(MOD-sp4) 59.4 % EF(sp4-el) 58.8 % LVAd ap2 23.2 cm\S\2 LVLd ap2 7.3 cm EDV(MOD-sp2) 58.8 ml EDV(sp2-el) 62.7 ml LVAs ap2 12.8 cm\S\2 LVLs ap2 5.7 cm ESV(MOD-sp2) 23.8 ml ESV(sp2-el) 24.2 ml EF(MOD-sp2) 59.5 % EF(sp2-el) 61.4 % LVLd %diff -22.55 % EDV(MOD-bp) 89.8 ml LVLs %diff -26.44 % ESV(MOD-bp) 38.3 ml EF(MOD-bp) 57.4 % SV(MOD-sp4) 71.2 ml SI(MOD-sp4) 31.1 ml/m\S\2 SV(MOD-sp2) 35.0 ml SI(MOD-sp2) 15.3 ml/m\S\2 SV(MOD-bp) 51.5 ml SI(MOD-bp) 22.5 ml/m\S\2 SV(sp4-el) 71.3 ml SI(sp4-el) 31.1 ml/m\S\2 SV(sp2-el) 38.5 ml SI(sp2-el) 16.8 ml/m\S\2
--- NOTE | 2017-04-23 12:32 | CARDIOLOGY CONSULTATION ---
DATE OF CONSULTATION: 04/23/2017 DATE OF CONSULTATION: 04/23/2017 REASON FOR CONSULTATION: Elevated troponin, abnormal echocardiogram. CHIEF COMPLAINT ON ADMISSION: Choking, hypoxia, intubation. HISTORY OF PRESENT ILLNESS: Mr. Aguirre is a 51-year-old gentleman who suffered a cerebrovascular accident in October 2016. He has resided at [facility] long-term facility since that time. The patient remembers consuming his midday meal and choking on a pork chop. Heimlich maneuver was attempted. The patient began wheezing with stridor. EMS was summoned. The patient had respiratory arrest en route to the hospital and he was intubated. During the procedure, pieces of food were removed from his trachea. Upon arrival to the ER, his vital signs were stable with SaO2 94% on 50% FIO2 on the ventilator. In the Emergency Department, the patient was extubated. He was found to have mildly elevated troponins. No ischemic ECG changes recorded during hospitalization. His troponins have trended downward. Initial resting 2D transthoracic echo suggested possible apical septal wall motion abnormality, though the study was technically limited. A repeat limited echocardiogram was performed this morning with use of intravenous contrast. A repeat study demonstrates normal wall motion. The patient seen and examined at the bedside. Denies chest pain or unusual shortness of breath. 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 Admits to active tobacco use smoking 1 pack per day. Notes mild dyspnea on exertion and cough. No orthopnea, PND, lower extremity edema, or claudication. Offers no other complaints at this time. REVIEW OF SYSTEMS: The pertinent positives are noted above. Comprehensive 10-system review is otherwise negative. PAST MEDICAL HISTORY: 1. Cerebrovascular accident October 2016. 2. Hypertension. 3. Drug overdose. 4. Dyslipidemia, currently not receiving statin therapy. PAST SURGICAL HISTORY: None per record. SOCIAL HISTORY: Active tobacco abuse. Currently resides at [facility] due to recent cerebrovascular accident. FAMILY HISTORY: Negative for premature CAD or sudden cardiac . OUTPATIENT MEDICATIONS: 1. Aspirin 81 mg daily. 2. Plavix 75 mg daily. 3. Amlodipine 10 mg daily. 4. Hydrochlorothiazide 25 mg daily. 5. Lisinopril 40 mg daily. 6. Depakote 250 mg daily. 7. Gabapentin 300 mg twice daily. 8. Olanzapine [address] of the chest performed on admission demonstrates focal areas of consolidation of the base of the left lower lobes consistent with pneumonia related to aspiration. There is trace mucoid material in the distal trachea and right main stem bronchus. CT of the head, old post-traumatic or post-ischemic changes involving the temporal lobe regions and right parietal lobe as well as frontal lobes. No acute intracranial abnormality. LABORATORY DATA: Initial troponin 0.082, peak troponin of 1.740 with a repeat troponin of 1.40. Sodium 142, potassium 4.0, chloride 111, CO2 24, BUN is 9, creatinine is 1.16. Magnesium 2.1, AST 76, ALT 112. INR is 1.0. White blood cell count 6.66, hemoglobin is 13.1, platelet count is 194. PHYSICAL EXAMINATION: VITAL SIGNS: Temperature is 36.7 degrees centigrade, pulse 55 beats per minute and regular, respiratory rate 16 breaths per minute, blood pressure 108/57. SAO2 is 98% on room air. GENERAL: NAD, he is awake and alert. THROAT: His mucous membranes are moist. No scleral icterus. NECK: Supple without JVD or HJR. No carotid bruit. HEART: Regular with a normal S1 and S2. No murmur, rub or gallop. LUNGS: Scant crackles at the left base. No wheezing or rhonchi. ABDOMEN: Soft, nontender. No rebound or guarding. EXTREMITIES: Warm and dry without clubbing, cyanosis or edema. NEUROLOGIC EXAMINATION: Demonstrates no facial asymmetry, no focal neurologic deficit noted. FINAL IMPRESSION: 1. A 51-year-old male admitted with acute hypoxic respiratory failure secondary to choking episode. Mildly elevated troponins secondary to hypoxemia. No ischemic ECG changes. Repeat echocardiogram demonstrates no regional wall motion abnormalities. 2. History of recent cerebrovascular accident with abnormal CT findings listed above. 3. Dyslipidemia -- currently not treated with statin therapy. 4. Mildly elevated transaminases. 5. Hypertension -- controlled. 6. Possible underlying psychiatric disorder. PLAN AND RECOMMENDATIONS: Continue aspirin and Plavix in addition to current antihypertensive medications as noted above. Statin therapy is indicated. It appears his transaminases are elevated. I would recommend further evaluation of elevated transaminases prior to initiating statin therapy. Consider outpatient stress testing for further risk stratification with any symptoms concerning for angina. No further inpatient cardiac testing at this time. Thank you for allowing me to take part in the care of your patient. Will sign off. Please call with questions. SAJAN
[2017-04-23] MEDS ORDERED: LEVO1TAB34 PO (14:58)
[2017-04-23] MEDS ORDERED: CLIN300C2 PO (14:58)
[2017-04-23] MEDS ORDERED: LEVALBUTEROL 1.25MG/0.5ML NEB INH PRN (15:00)
--- NOTE | 2017-04-23 15:04 | Discharge Instructions ---
Discharge Instructions Date of Service Apr 23, 2017. Admission Reason for Admission: Respiratory Distress Discharge Discharge Diagnosis / Problem: RESPIRATORY ARREST SECONDARY TO CHOKING EVENT Discharge Goals Goal(s): Diagnostic testing, Therapeutic intervention Activity Recommendations Activity Level: Ambulates in room Therapies: Physical Therapy, Occupational Therapy, Speech Therapy . Additional Information Patient informed of condition: Yes Advance Directives: No (UNKNOWN) DNR: No (PATIENT IF FULL CODE PER HIS MOTHER) Level of Care: Skilled Communicable Disease: No Prognosis: Stable Instructions / Follow-Up Instructions / Follow-Up PATIENT NEEDS ASSISTANCE WITH FEEDING AT ALL TIMES HE IS VERY IMPULSIVE. HE NEEDS A DENTAL SOFT CUT DIET AND CONTINUED SPEECH THERAPY EVALUATION. ASPIRATION PRECAUTIONS. MONITOR FOR WORSENING SYMPTOMS OF PNEUMONIA. FURTHER WORK UP OF ELEVATED LFTS OUTPATIENT. HE NEEDS TO BE STARTED ON A STATIN BUT LFTS NEED TO BE MONITORED. OUTPATIENT STRESS TEST OUTPATIENT IF WITH SYMPTOMS OF ANGINA. PLEASE REFER TO ACCOMPANYING HOSPITAL DISCHARGE SUMMARY FOR FURTHER DETAILS. Current Hospital Diet Patient's current hospital diet: Regular Diet Discharge Diet Recommended Diet: AHA Diet (Heart Healthy) Diet Texture: Dental Soft (bite-sized) Procedures Procedures Performed: CT HEAD, CT CHEST, ECHO, VIDEOSWALLOW EVALUATION Pending Studies Studies pending at discharge: no Physician Orders On Transfer Special Precautions: PATIENT NEEDS ASSISTANCE WITH FEEDING AT ALL TIMES HE IS VERY IMPULSIVE. HE NEEDS A DENTAL SOFT CUT DIET AND CONTINUED SPEECH THERAPY EVALUATION. ASPIRATION PRECAUTIONS. MONITOR FOR WORSENING SYMPTOMS OF PNEUMONIA. FURTHER WORK UP OF ELEVATED LFTS OUTPATIENT. HE NEEDS TO BE STARTED ON A STATIN BUT LFTS NEED TO BE MONITORED. OUTPATIENT STRESS TEST OUTPATIENT IF WITH SYMPTOMS OF ANGINA. PLEASE REFER TO ACCOMPANYING HOSPITAL DISCHARGE SUMMARY FOR FURTHER DETAILS. Medical Emergencies . Who to Call and When: Medical Emergencies: If at any time you feel your situation is an emergency, please call 911 immediately. . Non-Emergent Contact Non-Emergency issues call your: Primary Care Provider Call Non-Emergent contact if: you have a fever, your pain is not controlled, your pain is worsening, you have any medication questions . Past History Medical & Surgical History: (1) Respiratory failure (2) Elevated troponin (3) Respiratory arrest . "Provider Documentation" section prepared by Bryon Alonzo. . Core Measure Problem Core Measures: None
--- NOTE | 2017-04-23 15:17 | Progress Note ---
Medicine Progress Note Date & Time of Visit: Apr 23, 2017 at 15:05. Subjective patient seen resting in bed, comfortable, somewhat irritable oriented x 2, answers questions appropriately denies shortness of breath, cough is better denies chest pain, dyspnea, dizziness, palpitations ambulates with no problem states he feels fine overall denies other symptoms Objective Last 8 Hrs Date Time Temp Pulse Resp B/P (MAP) Pulse Ox O2 Delivery O2 Flow Rate FiO2 04/23/17 14:40 68 98 04/23/17 12:00 Room Air 04/23/17 11:45 36.4 61 18 133/89 (104) 99 Room Air 04/23/17 08:00 Room Air Physical Exam: General- oriented x 2, not in distress, speaks in sentences with no effort Eyes- EOMI, anicteric Neck- supple, no JVD Lungs- clear breath sounds bilaterally, no rales/wheezes Heart- regular rhythm; no murmur, normal rate Abdomen- normal bowel sounds, soft, nontender Extremities- no pretibial edema, no calf tenderness; peripheral pulses intact Neuro- alert, oriented x 2; no gross focal deficits Skin- warm & dry Laboratory Results: Last 24 Hours Test 04/23/17 05:11 White Blood Count 6.66 K/uL Red Blood Count 3.91 M/uL Hemoglobin 13.1 g/dL Hematocrit 38.3 % Mean Corpuscular Volume 98.0 fL Mean Corpuscular Hemoglobin 33.5 pg Mean Corpuscular Hemoglobin Concent 34.2 g/dl Platelet Count 194 K/uL Mean Platelet Volume 10.6 fL Neutrophils (%) (Auto) 43.3 % Lymphocytes (%) (Auto) 44.4 % Monocytes (%) (Auto) 8.7 % Eosinophils (%) (Auto) 2.6 % Basophils (%) (Auto) 0.8 % Neutrophils # (Auto) 2.89 K/uL Lymphocytes # (Auto) 2.96 K/uL Monocytes # (Auto) 0.58 K/uL Eosinophils # (Auto) 0.17 K/uL Basophils # (Auto) 0.05 K/uL RDW Standard Deviation 45.7 fL RDW Coefficient of Variation 12.8 % Immature Granulocyte % (Auto) 0.2 % Immature Granulocyte # (Auto) 0.01 K/uL Sodium Level 142 mmol/L Potassium Level 4.1 mmol/L Chloride Level 111 mmol/L Carbon Dioxide Level 24 mmol/L Anion Gap 7.0 mmol/L Blood Urea Nitrogen 9 mg/dl Creatinine 1.16 mg/dl Est Creatinine Clear Calc Drug Dose 93.3 ml/min Estimated GFR () 82.9 Estimated GFR (Non- 71.5 BUN/Creatinine Ratio 7.9 Random Glucose 93 mg/dl Calcium Level 7.7 mg/dl Magnesium Level 2.1 mg/dl Total Bilirubin 0.6 mg/dl Direct Bilirubin 0.2 mg/dl Aspartate Amino Transf (AST/SGOT) 76 U/L Alanine Aminotransferase (ALT/SGPT) 112 U/L Alkaline Phosphatase 49 U/L Total Protein 7.1 gm/dl Albumin 3.0 gm/dl Assessment & Plan ASSESSMENT AND PLAN: This is a 51-year-old male with a history of an acute CVA in October 2016, hypertension, history of drug overdose, possible underlying depression, currently residing the [facility], presenting with a respiratory arrest following a choking episode. Acute respiratory arrest, secondary to a choking episode resolved - status post intubation en route to the ER and extubation while at the ER a few hours later -- remained stable while observed in Telemetry unit good O2 saturation on room air -- evaluated by Speech Therapist, recommendations: --Speech Therapy Discharge Instructions * SUMMARY/RECOMMENDATIONS: This patient presents with mild brayan-pharyngeal dysphagia. Recommendations are as follows: 1.Dental diet, thin liquids. 2.Aspiration precautions, straws OK, fully upright for meals and for 30 minutes after meals. 3.Supervision with meals. Will require assistance with taking small bites/sips and eating at a slow rate. 4. Would benefit from continued speech therapy at discharge back to SNF. Possible left-sided pneumonia, health care associated versus aspiration - as the patient resides in a half-way and has had a stroke event. - CT chest: IMPRESSION: 1. Trace mucoid material within the distal trachea and right mainstem bronchus. 2. Small focal areas of consolidation within the bases of the lower lobes posteriorly. This could represent atelectasis or pneumonia, possibly secondary to aspiration. -- remained afebrile, no leukocytosis received Levaquin + Clinda IV x 3 days, continue for 2 more days, then monitor Nebs given as well -- monitor Mild troponin elevation, likely secondary to respiratory arrest -- EKG no ischemia -- initial echo: hypokinetic apical septum repeat echo with contrast: -- Conclusions -- * Ejection Fraction = 55-60%. * The left ventricular wall motion is normal. Cardiology consulted Dr. Blair, mild troponin elevation likely from respiratory arrest Mild elevation of the LFTs. -- please continue to work up and monitor as outpatient -- patient has to be on a statin, but LFT needs to be monitored History of a cerebrovascular accident -- occurred in October 2016. -- No new focal neurologic deficits. -- Continue the usual aspirin and Plavix -- patient has to be on a statin, but LFT needs to be monitored Hypertension -- BP on the lower side IV fluids given -- BP improving -- resume Lisinopril and hold Amlodipine and HCTZ (resume accordingly based on BP trend)> Possible underlying psychiatric history with a possible mood disorder. Continue Depakote, olanzapine and Seroquel. Disposition return to [facility] ff up with Attending at the [facility] and/or PCP Current Inpatient Medications: Current Inpatient Medications Medications (Trade) Dose Ordered Sig/Estrella Route Start Time Stop Time Status Last Admin Dose Admin Levofloxacin 500 mg/Prmx 100 ml @ 100 mls/hr Q24H IV 04/21/17 17:00 04/28/17 16:59 04/22/17 15:41 100 MLS/HR Clindamycin Phosphate 600 mg/ Dextrose 54 ml @ 100 mls/hr Q8H IV 04/21/17 17:00 04/28/17 16:59 04/23/17 08:37 100 MLS/HR Aspirin (Ecotrin Tab) 81 mg DAILY PO 04/22/17 09:00 05/22/17 08:59 04/23/17 08:35 81 MG Benztropine Mesylate (Cogentin Tab) 0.5 mg DAILY PO 04/22/17 09:00 05/22/17 08:59 04/23/17 08:37 0.5 MG Clopidogrel Bisulfate (plAVix TAB) 75 mg QAM PO 04/22/17 09:00 05/22/17 08:59 04/23/17 08:36 75 MG Divalproex Sodium (Depakote Extended Rel Tab) 250 mg DAILY PO 04/22/17 09:00 05/22/17 08:59 04/23/17 08:37 250 MG Gabapentin (Neurontin Cap) 300 mg BID PO 04/21/17 21:00 05/21/17 20:59 04/23/17 08:36 300 MG Olanzapine (Zyprexa Tab) 10 mg HS PO 04/21/17 21:00 05/21/17 20:59 04/22/17 21:11 10 MG Quetiapine Fumarate (seroQUEL TAB) 50 mg BID PO 04/21/17 21:00 05/21/17 20:59 04/23/17 08:37 50 MG Mirtazapine (Remeron Solutab) 30 mg HS PO 04/21/17 21:00 05/21/17 20:59 04/22/17 21:10 30 MG Acetaminophen (Tylenol Tab) 650 mg Q4H PRN PO 04/21/17 16:15 05/21/17 16:14 Ondansetron HCl (Zofran Inj) 4 mg Q6H PRN IV 04/21/17 16:15 05/21/17 16:14 Levalbuterol (Xopenex 1.25MG/ 0.5ML Neb) 1.25 mg Q6H PRN INH 04/23/17 15:00 05/21/17 15:59
--- NOTE | 2017-04-23 15:23 | Discharge Summary ---
Discharge Summary Date of Service Apr 23, 2017. Discharge Summary Admission Date: Apr 21, 2017 at 15:52 Discharge Date: Apr 23, 2017 Discharge Disposition: halfway facility Principal Diagnosis: Acute respiratory arrest, secondary to a choking episode, resolved Secondary Diagnoses/Problems: Please refer to hospital course below. Procedures: HEAD WITHOUT CONTRAST (CT) CT DOSE: 537.48 mGy.cm HISTORY: Trauma intubation, aspiration TECHNIQUE: Multiaxial CT images of the head were performed without the use of intravenous contrast. A dose lowering technique was utilized adhering to the principles of ALARA. Comparison: None. Findings: Considerable hypertrophic change of the nasal turbinates. Trace fluid within the right maxillary sinus. Considerable soft tissue edematous change of the posterior nasal and oropharynx. Brain demonstrates areas of encephalomalacia of the temporal lobe and inferior frontal lobe regions. A small focus of encephalomalacia over the left frontal and right parietal occipital region is also present. These are considered nonacute. There is no midline shift. The calvarium and skull base are intact. The ventricles and sulci are within normal limits. There is no mass, hematoma, midline shift, or acute infarct. Impression: 1. Findings consistent with old posttraumatic or postischemic changes involving the temporal lobe regions, final lobes, as well as right parietal occipital lobe. 2. No acute intracranial abnormality. 3. Edematous change of the structures of the posterior and mid nasopharyngeal and superior oropharyngeal region. CHEST ONE VIEW PORTABLE HISTORY: 51 years-old Male aspiration acute aspiration COMPARISON: None available TECHNIQUE: Supine AP view of the chest FINDINGS: Cardiac silhouette is within normal limits. Endotracheal tube is present overlying the midline, 5.5 cm superior to the edita. Lungs are hypoinflated with hazy opacities noted throughout the left lung, notably within the perihilar distribution. The patient is slightly rotated to the left. Ill-defined left basilar opacity is also noted. The right lung is generally clear. No pneumothorax or large pleural effusion. The bones are grossly intact. There is gaseous distention of the stomach. IMPRESSION: 1. Endotracheal tube terminates 5.5 cm superior to the edita. 2. Hypoinflated lungs with bronchovascular crowding, hazy left perihilar and left basilar opacities suggesting atelectasis or pneumonitis. 3. Mild gaseous distention of the stomach. The above report was generated using voice recognition software. It may contain grammatical, syntax or spelling errors. Electronically signed by: Mane Durand M.D. 04/21/2017 1:52 PM (CHEST) THORAX WITHOUT CT DOSE: 730.53 mGy.cm HISTORY: Choking episode. r/o residual foreign body TECHNIQUE: Multiaxial CT images of the chest were performed without contrast. A dose lowering technique was utilized adhering to the principles of ALARA. COMPARISON: Chest 04/21/2017. FINDINGS: Mild motion artifact. This is most pronounced within the lower lobes. Trace mucoid material within the distal trachea and right mainstem bronchus. Small focal areas of consolidation seen within the base of the lower lobes posteriorly. No pneumothorax. No fractures within the visualized osseous structures. The visualized liver, spleen, and adrenal glands are unremarkable. Tiny fat-containing midline epigastric hernia. No radiopaque foreign bodies. The esophagus is normal in course and caliber. No mediastinal or hilar lymphadenopathy. Normal caliber thoracic aorta. The heart is normal in size. Mild calcified plaque within the coronary arteries. IMPRESSION: 1. Trace mucoid material within the distal trachea and right mainstem bronchus. 2. Small focal areas of consolidation within the bases of the lower lobes posteriorly. This could represent atelectasis or pneumonia, possibly secondary to aspiration. Electronically signed by: Chinmay Pickett M.D. 04/21/2017 4:51 PM VIDEO SWALLOW CLINICAL HISTORY: 51 years-old Male presenting with assess for aspiration,, concern for foreign body, choking episode. TECHNIQUE: Video fluoroscopic evaluation of swallowing was performed in the AP and lateral projections in conjunction with speech pathology. The patient was administered various textures, including nectar-thick and thin liquid barium, a barium coated wafer, and barium pudding. COMPARISON: Chest CT from 04/21/2017. FINDINGS: There is normal hyoid excursion and epiglottic deflection. Anterior osteophytosis of the lower cervical spine without significant result on swallowing function. Penetration of thin liquids without aspiration. Penetration of nectar thick liquids without aspiration. No aspiration of pudding consistency or solids. The esophagus is grossly normal without evidence of dysmotility or intraesophageal reflux. Normal passage through the gastroesophageal junction. Fluoroscopy dosage (mGy): Not available. Fluoroscopy time: 1.3 minutes. Number of fluoroscopic spot images: 0. IMPRESSION: 1. No aspiration identified. Penetration of liquids. 2. Please see the speech pathologist report for detailed findings and recommendations. Electronically signed by: Ochoa Coffey M.D. 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 HE NEEDS A DENTAL SOFT CUT DIET AND CONTINUED SPEECH THERAPY EVALUATION. ASPIRATION PRECAUTIONS. MONITOR FOR WORSENING SYMPTOMS OF PNEUMONIA. FURTHER WORK UP OF ELEVATED LFTS OUTPATIENT. HE NEEDS TO BE STARTED ON A STATIN BUT LFTS NEED TO BE MONITORED. OUTPATIENT STRESS TEST OUTPATIENT IF WITH SYMPTOMS OF ANGINA. PLEASE REFER TO ACCOMPANYING HOSPITAL DISCHARGE SUMMARY FOR FURTHER DETAILS. Medication Reconciliation New Medications: Clindamycin Hcl (Cleocin) 300 Mg Cap 2 CAP PO TID for 2 Days, #12 CAP 0 Refills Levofloxacin (Levaquin) 500 Mg Tab 1 TAB PO DAILY for 2 Days, #2 TAB 0 Refills Continued Medications: Aspirin (Aspirin Adult Low Dose) 81 Mg Tab 81 MG PO DAILY Benztropine Mesylate (Benztropine Mesylate) 0.5 Mg Tab 0.5 MG PO DAILY Clopidogrel (Plavix) 75 Mg Tab 75 MG PO QAM, TAB Divalproex Sodium (Depakote Er) 250 Mg Tab 250 MG PO DAILY for 30 Days, #30 TAB Folic Acid (Folvite) 1 Mg Tab 1 MG PO DAILY, TAB Gabapentin (Neurontin) 300 Mg Cap 300 MG PO BID, CAP Lisinopril (Zestril) 40 Mg Tab 40 MG PO DAILY, TAB Mirtazapine Soltab (Remeron Soltab) 30 Mg Soltab 30 MG PO HS, TAB Multivitamin (Multivitamin) Tab 1 TAB PO DAILY, TAB Olanzapine (Zyprexa) 10 Mg Tab 10 MG PO HS, TAB Quetiapine Fumarate (Seroquel) 50 Mg Tab 50 MG PO BID, TAB Thiamine Hcl (Vitamin B-1) 100 Mg Tab 100 MG PO DAILY, TAB Discontinued Medications: Amlodipine (Norvasc) 10 Mg Tab 10 MG PO DAILY, TAB Hydrochlorothiazide (Hydrochlorothiazide) 12.5 Mg Tab 12.5 MG PO DAILY for 90 Days, #90 TAB 3 Refills Admission Information HPI (per Admitting provider): HISTORY OF PRESENT ILLNESS: The patient history had been obtained from the patient and supplemented with the patient's mother, Winter, at the bedside. The patient is a pleasant 51-year-old male, a resident of [facility] with a history of recent stroke in October 2016, hypertension, presenting with respiratory arrest. Apparently, the patient was having lunch at around noontime when he walked of the dining room, "choking". The staff at the jail did a Heimlich maneuver and afterwards, the patient was noted to be wheezing and was having stridor. EMS was called. The patient was en route to the hospital, was noted to have respiratory arrest, intubation immediately performed and apparently, during the procedure, pieces of food were obtained. He was sedated during admission. Upon arrival at the ER, the patient's vital signs were as follows: Blood pressure 120/93, pulse rate of 108, saturating 94% on a mechanical ventilator with 50% FiO2. During observation at the ER, the patient started to awaken and was becoming restless, fighting the vent. Hence, the decision was made to activate the patient. Upon activation, the patient was doing well on an oxygen mask vent and nasal cannula, saturating 97% on room air. The patient has received propofol and normal saline at the ER. On my exam, the patient has been examined with the patient's , Winter, at the bedside. The patient was already awake, alert, oriented x2, has good recall of events prior to coming to the hospital. He was denying any active shortness of breath, but reports a few-day history of cough, no fever or chills. He was denying any chest pain, dizziness, headaches, abdominal pain, problems with urination or bowel movement. No other symptoms noted. PERSONAL AND SOCIAL HISTORY: The patient is a resident at the halfway [facility] after his stroke in October 2016. PAST MEDICAL HISTORY: History of a stroke in October 2016, hypertension, history of drug overdose. MEDICATIONS: The patient takes aspirin 81 mg daily, Plavix 75 mg daily, amlodipine 10 mg daily, HCTZ 25 mg daily, lisinopril 40 mg daily, Depakote 250 mg p.o. daily, gabapentin 300 mg b.i.d., Olanzapine 10 mg daily, Seroquel 50 mg b.i.d. PAST SURGICAL HISTORY: To be obtained. PERSONAL AND SOCIAL HISTORY: History of drug abuse in the past. REVIEW OF SYSTEMS: All 10 systems reviewed and negative, except for the ones mentioned above. Physical Exam (per Admitting): VITAL SIGNS: On my examination, blood pressure 94/70, pulse rate 77, respiratory rate of 14, temperature of 36.5, saturating 98% on nasal cannula. GENERAL: The patient is awake, alert, oriented x2, not in distress, speaks in sentences. No accessory muscle use. HEAD AND NECK: Atraumatic and normocephalic. Normal pupils. Full EOMs. No icterus. [place] conjunctivae. ENT: Grossly normal. NECK: No JVD, no lymphadenopathy or thyromegaly. HEART: Normal rate. Regular rhythm. No murmurs. LUNGS: Positive for mild rales at the left base. No wheezing. Good air entry bilaterally. ABDOMEN: Nondistended, soft and nontender. EXTREMITIES: No pedal edema. No rashes noted. NEUROLOGIC: Oriented x3. Cranial nerves II-XII grossly intact. Motor is 5/5 in all extremities. Extension is 100% in all extremities. As per mother, the patient has had poor short-term memory since the stroke and has had some behavioral disturbance as well. Hospital Course ASSESSMENT AND PLAN: This is a 51-year-old male with a history of an acute CVA in October 2016, hypertension, history of drug overdose, possible underlying depression, currently residing the [facility], presenting with a respiratory arrest following a choking episode. Acute respiratory arrest, secondary to a choking episode resolved - status post intubation en route to the ER and extubation while at the ER a few hours later -- remained stable while observed in Telemetry unit good O2 saturation on room air -- evaluated by Speech Therapist Juni fairbanks (full report in the procedure section above) --Speech Therapy Discharge Instructions * SUMMARY/RECOMMENDATIONS: This patient presents with mild brayan-pharyngeal dysphagia. Recommendations are as follows: 1.Dental diet, thin liquids. 2.Aspiration precautions, straws OK, fully upright for meals and for 30 minutes after meals. 3.Supervision with meals. Will require assistance with taking small bites/sips and eating at a slow rate. 4. Would benefit from continued speech therapy at discharge back to SNF. Possible left-sided pneumonia, health care associated versus aspiration - as the [facility] and has had a stroke event. - CT chest: IMPRESSION: 1. Trace mucoid material within the distal trachea and right mainstem bronchus. 2. Small focal areas of consolidation within the bases of the lower lobes posteriorly. This could represent atelectasis or pneumonia, possibly secondary to aspiration. -- remained afebrile, no leukocytosis received Levaquin + Clinda IV x 3 days, continue for 2 more days, then monitor Nebs given as well -- monitor Mild troponin elevation, likely secondary to respiratory arrest -- EKG no ischemia -- initial echo: hypokinetic apical septum repeat echo with contrast: -- Conclusions -- * Ejection Fraction = 55-60%. * The left ventricular wall motion is normal. Cardiology consulted Dr. Blair, mild troponin elevation likely from respiratory arrest outpatient stress test if with anginal symptoms needs to be on a statin Mild elevation of the LFTs. -- please continue to work up and monitor as outpatient -- patient has to be on a statin, but LFT needs to be monitored History of a cerebrovascular accident -- occurred in October 2016. -- No new focal neurologic deficits. -- Continue the usual aspirin and Plavix -- patient has to be on a statin, but LFT needs to be monitored Hypertension -- BP on the lower side IV fluids given -- BP improving -- resume Lisinopril and hold Amlodipine and HCTZ (resume accordingly based on BP trend)> Possible underlying psychiatric history with a possible mood disorder. Continue Depakote, olanzapine and Seroquel. Disposition return to [facility] ff up with Attending at the [facility] and/or PCP Total time spent on discharge = 50 minutes This includes examination of the patient, discharge planning, medication reconciliation, and communication with other providers. Discharge Instructions Discharge Instructions Date of Service Apr 23, 2017. Admission Reason for Admission: Respiratory Distress Discharge Discharge Diagnosis / Problem: RESPIRATORY ARREST SECONDARY TO CHOKING EVENT Discharge Goals Goal(s): Diagnostic testing, Therapeutic intervention Activity Recommendations Activity Level: Ambulates in room Therapies: Physical Therapy, Occupational Therapy, Speech Therapy . Additional Information Patient informed of condition: Yes Advance Directives: No (UNKNOWN) DNR: No (PATIENT IF FULL CODE PER HIS MOTHER) Level of Care: Skilled Communicable Disease: No Prognosis: Stable Instructions / Follow-Up Instructions / Follow-Up PATIENT NEEDS ASSISTANCE WITH FEEDING AT ALL TIMES HE IS VERY IMPULSIVE. HE NEEDS A DENTAL SOFT CUT DIET AND CONTINUED SPEECH THERAPY EVALUATION. ASPIRATION PRECAUTIONS. MONITOR FOR WORSENING SYMPTOMS OF PNEUMONIA. FURTHER WORK UP OF ELEVATED LFTS OUTPATIENT. HE NEEDS TO BE STARTED ON A STATIN BUT LFTS NEED TO BE MONITORED. OUTPATIENT STRESS TEST OUTPATIENT IF WITH SYMPTOMS OF ANGINA. PLEASE REFER TO ACCOMPANYING HOSPITAL DISCHARGE SUMMARY FOR FURTHER DETAILS. Current Hospital Diet Patient's current hospital diet: Regular Diet Discharge Diet Recommended Diet: AHA Diet (Heart Healthy) Diet Texture: Dental Soft (bite-sized) Procedures Procedures Performed: CT HEAD, CT CHEST, ECHO, VIDEOSWALLOW EVALUATION Pending Studies Studies pending at discharge: no Physician Orders On Transfer Special Precautions: PATIENT NEEDS ASSISTANCE WITH FEEDING AT ALL TIMES HE IS VERY IMPULSIVE. HE NEEDS A DENTAL SOFT CUT DIET AND CONTINUED SPEECH THERAPY EVALUATION. ASPIRATION PRECAUTIONS. MONITOR FOR WORSENING SYMPTOMS OF PNEUMONIA. FURTHER WORK UP OF ELEVATED LFTS OUTPATIENT. HE NEEDS TO BE STARTED ON A STATIN BUT LFTS NEED TO BE MONITORED. OUTPATIENT STRESS TEST OUTPATIENT IF WITH SYMPTOMS OF ANGINA. PLEASE REFER TO ACCOMPANYING HOSPITAL DISCHARGE SUMMARY FOR FURTHER DETAILS. Medical Emergencies . Who to Call and When: Medical Emergencies: If at any time you feel your situation is an emergency, please call 911 immediately. . Non-Emergent Contact Non-Emergency issues call your: Primary Care Provider Call Non-Emergent contact if: you have a fever, your pain is not controlled, your pain is worsening, you have any medication questions . Past History Medical & Surgical History: (1) Respiratory failure (2) Elevated troponin (3) Respiratory arrest . "Provider Documentation" section prepared by Bryon Alonzo. . Core Measure Problem Core Measures: None
== END 2017-04-23 15:20 | DRG 208 ==
LOC: EDBD 13:25 → C.EDB 13:26 → C.2E 15:52 → ENRESERV 15:58 → CANRESERV 15:58 → ENRESERV 16:49
PROVIDERS: ADMIT Internal Medicine; ATTEND Internal Medicine
PROC: 5A1935Z Respiratory Ventilation, Less than 24 Consecutive Hours (ICD-10-PCS; principal; 2017-04-21)
DX: J96.01 Acute respiratory failure with hypoxia (principal); J69.0 Pneumonitis due to inhalation of food and vomit; I10 Essential (primary) hypertension; R13.12 Dysphagia, oropharyngeal phase; F39 Unspecified mood [affective] disorder; Z79.02 Long term (current) use of antithrombotics/antiplatelets; Z79.82 Long term (current) use of aspirin; Z79.899 Other long term (current) drug therapy; Z86.73 Personal history of transient ischemic attack (TIA), and cerebral infarction without residual deficits

== ENCOUNTER → 2017-09-26 | Outpatient (CLI) | payer OTHER ==
[~2017-09-26] MED LIST: ASPI-589 PO; BENZ0.5T2 PO; CLIN300C2 PO; CLOP1TAB15 PO; DIVA250T PO; FOLI1TAB8 PO; GABA-113 PO; LEVO1TAB34 PO; LISI40TA PO; MIRT30TA2 PO; MULT-506 PO; OLAN10TA11 PO; QUET1TAB32 PO; THIA100T11 PO
[2017-09-26 09:29] LABS: BASO % 0.7 %; BASO ABS # 0.05 K/uL (0-0.2); EOS % 3.1 %; EOS ABS # 0.21 K/uL (0-0.5); HEMATOCRIT 45.6 % (42-52); HEMOGLOBIN 15.5 g/dL (14.0-18.0); IG# 0.01 K/uL (0.00-0.02); LYMPH % 46.2 %; MEAN CELL VOLUME 98.7 fL (80-100); MEAN CORPUSCULAR HEMOGLOBIN 33.5 pg (25-34); MEAN PLATELET VOLUME 11.1 fL (7.4-10.4); MONO % 8.5 %; MONO ABS # 0.57 K/uL (0.11-0.59); NEUT % 41.4 %; NEUT ABS # 2.77 K/uL (1.4-6.5); PLATELET COUNT 199 K/uL (130-400); RED CELL DISTRIBUTION WIDTH CV 13.4 % (11.5-14.5); RED CELL DISTRIBUTION WIDTH SD 48.2 fL (36.4-46.3); WHITE BLOOD COUNT 6.71 K/uL (4.8-10.8)
[2017-09-26 09:43] LABS: ALBUMIN 3.3 gm/dl (3.4-5.0); BLOOD UREA NITROGEN 11 mg/dl (7-18); CALCIUM 8.6 mg/dl (8.5-10.1); CARBON DIOXIDE 26 mmol/L (21-32); CREATININE 1.28 mg/dl (0.60-1.40); GLUCOSE 87 mg/dl (70-99); POTASSIUM 4.1 mmol/L (3.5-5.1); SODIUM 141 mmol/L (136-145)
[2017-09-26 09:46] LABS: ALKALINE PHOSPHATASE 55 U/L (45-117); ALT/SGPT 142 U/L (12-78); AST/SGOT 85 U/L (15-37); TOTAL PROTEIN 7.7 gm/dl (6.4-8.2)
[2017-09-26 11:59] LABS: HEP C IGG 13 YRS+OLDER_RFLX PRELIM POS (NEG)
== END ==
LOC: C.LABUPHEI 09:01
PROVIDERS: ATTEND Nurse Practitioner Family
DX: N17.9 Acute kidney failure, unspecified (principal); Z72.0 Tobacco use; B17.10 Acute hepatitis C without hepatic coma

== ENCOUNTER → 2017-09-27 | Outpatient (CLI) | payer OTHER | END | disposition home or self-care (01) | LOC: C.LABUPHEI 08:00 | PROVIDERS: ATTEND Nurse Practitioner Family | DX: B17.10 Acute hepatitis C without hepatic coma (principal) ==

== ENCOUNTER → 2017-09-30 | Outpatient (CLI) | payer OTHER ==
[2017-10-05 08:30] LABS: HEPATITIS C VIRAL RNA BY PCR 1280000 IU/ML (<15); HEPATITIS C VIRAL RNA(LOG) PCR 6.11 LOG IU/ML (<1.18)
--- NOTE | 2017-10-07 10:18 | CODING QUERY NO DIAGNOSIS ---
TREATMENT RENDERED WITHOUT A DIAGNOSIS 63 To promote full compliance with coding requirements relating to patient care, physician participation is requested in all cases of production planning manager uncertainty. Please assist us with providing a diagnosis/symptom for the test(s) below: A diagnosis/symptom was not documented on your Order. A valid diagnosis/symptom is required to bill all insurances. Please remember that we are unable to code a diagnosis of rule out, probable, possible, questionable, or suspected. DOS 09/30/17 Tests that require a diagnosis: * HEPATITIS C RNA QUANT DIAGNOSIS: * HCV GENOTYPE DIAGNOSIS: Provider Signature: Date: Thank you Zuleima Gutierrez Health Information Management Once completed, please kindly fax back to [phone] For questions please call [phone]
== END ==
LOC: C.LABUPHEI 07:55
PROVIDERS: ATTEND Nurse Practitioner Family
DX: B17.10 Acute hepatitis C without hepatic coma (principal)

== ENCOUNTER → 2017-10-05 | Outpatient (CLI) | payer OTHER | LOC: C.LABUPHEI 08:08 | PROVIDERS: ATTEND Nurse Practitioner Family | DX: M10.9 Gout, unspecified (principal) ==

== ENCOUNTER 2020-09-24 15:39 | Inpatient (IN) ==
[2020-09-24] MEDS ORDERED: OPTIRAY 350 500ml IV ONE (15:56)
--- NOTE | 2020-09-24 15:57 | Emergency Department Note ---
Impression & Plan Transient cerebral ischemia, Stroke-like symptoms, Acute hypotension, Near syncope ED Provider Note NAME: CURTIS SHARMA AGE: 55 SEX: M : 1965 ARRIVES VIA: Ambulance INFORMANT: Patient ED PROVIDER(S): Enrique Villa DO CHIEF COMPLAINT: right facial droop HPI: Patient is a 55-year-old male with past medical history of a TIA, hepatitis C and traumatic brain injury that presents the ER for near syncopal event. Patient is a resident at [facility]. Became very lethargic weak and lightheaded. They laid him in bed. This occurred around 230. They called EMS and patient was transported to the ER. He never passed out. At that time he noticed some slurred speech and some facial droop on the right. He denies any headache or change in vision. No chest pain or shortness of breath. No nausea vomiting. Denies any urinary complaints. Nursing staff notes that his baseline is awake yelling and cursing. ROS: See above HPI for pertinent positives & negatives. A total of 10 systems reviewed and were otherwise negative. PAST MEDICAL HISTORY:See Below PAST SURGICAL HISTORY:See Below FAMILY HISTORY:See Below SOCIAL HISTORY:See Below HOME MEDICATIONS:See Below ALLERGIES:See Below VITALS:See Below PHYSICAL EXAMINATION: GENERAL: Sitting up in bed, alert, well appearing, well nourished, no distress, non-toxic EYE EXAM: normal conjunctiva. OROPHARYNX: no exudate, no erythema, lips, buccal mucosa, and tongue normal and mucous membranes are moist NECK: supple, no nuchal rigidity, no adenopathy, non-tender LUNGS: Clear to auscultation. Normal chest wall mechanics HEART: no murmurs, S1 normal and S2 normal ABDOMEN: abdomen soft, non-tender, normo-active bowel sounds, no masses, no rebound or guarding. BACK: Back is symmetrical on inspection and there is no deformity, no midline tenderness, no CVA tenderness. UPPER EXTREMITIES: upper extremities are grossly normal. LOWER EXTREMITIES: No pitting edema. NEURO EXAM: Normal sensorium, cranial nerves with a right-sided facial droop, slurred speech, no weakness of arms, no weakness of legs. No drift. Warqrb-vs-rclw intact. MEDICAL DECISION MAKING: Patient is a 55-year-old male brought in by EMS as a stroke alert with a right- sided facial droop and slurred speech and hypotension which occurred prior to arrival. He was given IV fluids and blood pressure trended up to low 100s. He was given a total of 2.5 liters. He was taken to CT.Labs showed no significant leukocytosis or anemia. INR 1.2. BMP with a moderate hyponatremia at 126. LFTs bilirubin was unremarkable. Magnesium was normal. Valproic was undetectable. Covid was negative. Flu was negative. He has no other complaints. Chest x-ray was unremarkable. CT of the head as well as angio of the head and neck shows left external carotid high-grade stenosis. Throughout his stay in the ER slurred speech improved significantly as well as the facial droop. Discussed with Hannah telestroke neurology. Mom uncertain at this time if this is truly a stroke or related to the low blood pressure but his symptoms improved significantly and the blood pressure trended up to about 100. He agre ed. We will hold on any TPA at this time with the risk and benefits. Discussed with the hospitalist for further evaluation. Blood pressures trended back down into the 70s and a central line was placed. Patient was given antibiotics. Speech did not change there is no focal deficit on exam. Triage Nursing notes reviewed. Limited review of prior medical records performed Vital Signs: reviewed and remarkable for HYpotension Differential diagnosis: Differential Diagnosis includes but is not limited to ischemic Stroke, hemorrhagic stroke, bells palsy, mass, neoplasm, migraine headache, seizure, subarachnoid hemorrhage, TIA, and transient global amnesia. ER treatment provided: See below Diagnostics interpreted by me: ECG: Sinus rhythm rate of 64 Left axis No PVCs QTC 431 Cardiac Monitoring: An order was placed for continuous cardiac monitoring. The monitor shows a rate of 80 with sinus rhythm. Laboratory studies: As stated above and show below. Imaging studies: See below Consultation(s): Discussed with the hospitalist for further evaluation Procedures: none Critical Care: I have personally spent 32 minutes of critical care time in the direct management of this patient. This includes bedside care, interpretation of diagnostic studies, and testing, discussion with consultants, patient, and f amily members, and other required patient management activities. This 32 minutes is in excess of all separately billable procedures. Past Med/Surg History Medical History (Updated 09/24/20 @ 20:04 by Enrique Villa DO) Elevated prostate specific antigen (PSA) Social History Smoking Status: Unknown if ever smoked Feels Safe at Home: Yes Allergies Allergies Allergy/AdvReac Type Severity Reaction Status Date / Time No Known Allergies Allergy Unverified 09/24/20 17:39 Home Meds Home Medications Medication Instructions Recorded Confirmed acetaminophen [Tylenol] 650 mg PO Q6 PRN 09/24/20 09/24/20 allopurinol 100 mg PO BID 09/24/20 09/24/20 aspirin [Aspir-Low] 81 mg PO DAILY 09/24/20 09/24/20 benztropine 0.5 mg PO DAILY 09/24/20 09/24/20 carbamazepine [Tegretol] 400 mg PO BID 09/24/20 09/24/20 cholecalciferol (vitamin D3) 125 mcg PO DAILY 09/24/20 09/24/20 [Vitamin D3] clopidogrel 75 mg PO DAILY 09/24/20 09/24/20 diclofenac sodium 4 g TOPICAL QID PRN 09/24/20 09/24/20 folic acid 1 mg PO DAILY 09/24/20 09/24/20 gabapentin 200 mg PO BID 09/24/20 09/24/20 lisinopril 40 mg PO DAILY 09/24/20 09/24/20 magnesium hydroxide [Milk of 30 ml PO DAILY PRN 09/24/20 09/24/20 Magnesia] melatonin 5 mg PO HS 09/24/20 09/24/20 mirtazapine 15 mg PO HS 09/24/20 09/24/20 multivitamin 1 tab PO DAILY 09/24/20 09/24/20 olanzapine 5 mg PO HS 09/24/20 09/24/20 quetiapine [Seroquel] 50 mg PO HS 09/24/20 09/24/20 quetiapine [Seroquel] 75 mg PO [facility] 09/24/20 09/24/20 sertraline 50 mg PO QAM 09/24/20 09/24/20 thiamine HCl (vitamin B1) 100 mg PO DAILY 09/24/20 09/24/20 tramadol 50 mg PO BID 09/24/20 09/24/20 Results & Data (ED) Vital Signs Vital Signs - 24 hr 09/24/20 15:40 09/24/20 16:17 09/24/20 16:30 Temperature 36.6 C Temperature Source Oral Pulse Rate 68 67 75 Pulse Rate [Apical] Pulse Rate from SpO2 Sensor 67 75 Pulse Rhythm Regular Respiratory Rate 16 17 15 Respiratory Effort / Characteristics Non-Labored Spontaneous Respiratory Depth Normal Respiratory Pattern Regular Blood Pressure 107/74 107/70 103/67 Blood Pressure [Left Arm] Blood Pressure Mean 85 82 79 Blood Pressure Mean [Left Arm] Pulse Oximetry 95 96 98 Oxygen Delivery Method Room Air Sepsis Recent Fever Within 48 Hours No Sepsis New/Unexplained Change in Mental Status No Sepsis Action Taken by Nursing No Action Required 09/24/20 16:45 09/24/20 16:47 09/24/20 17:03 Temperature Temperature Source Pulse Rate 78 75 81 Pulse Rate [Apical] Pulse Rate from SpO2 Sensor 77 75 78 Pulse Rhythm Respiratory Rate 13 15 14 Respiratory Effort / Characteristics Respiratory Depth Respiratory Pattern Blood Pressure 89/63 L 108/65 117/77 Blood Pressure [Left Arm] Blood Pressure Mean 71 79 90 Blood Pressure Mean [Left Arm] Pulse Oximetry 98 99 98 Oxygen Delivery Method Sepsis Recent Fever Within 48 Hours Sepsis New/Unexplained Change in Mental Status Sepsis Action Taken by Nursing 09/24/20 17:15 09/24/20 17:16 09/24/20 17:18 Temperature Temperature Source Pulse Rate 90 90 86 Pulse Rate [Apical] Pulse Rate from SpO2 Sensor 90 91 H 86 Pulse Rhythm Respiratory Rate 19 18 17 Respiratory Effort / Characteristics Respiratory Depth Respiratory Pattern Blood Pressure 74/47 L 67/51 L 71/50 L Blood Pressure [Left Arm] Blood Pressure Mean 56 56 57 Blood Pressure Mean [Left Arm] Pulse Oximetry 100 100 99 Oxygen Delivery Method Sepsis Recent Fever Within 48 Hours Sepsis New/Unexplained Change in Mental Status Sepsis Action Taken by Nursing 09/24/20 17:20 09/24/20 17:21 09/24/20 17:22 Temperature Temperature Source Pulse Rate 85 79 76 Pulse Rate [Apical] Pulse Rate from SpO2 Sensor 85 79 77 Pulse Rhythm Respiratory Rate 17 23 17 Respiratory Effort / Characteristics Respiratory Depth Respiratory Pattern Blood Pressure 70/50 L 75/55 L 88/59 L Blood Pressure [Left Arm] Blood Pressure Mean 56 61 68 Blood Pressure Mean [Left Arm] Pulse Oximetry 99 99 99 Oxygen Delivery Method Sepsis Recent Fever Within 48 Hours Sepsis New/Unexplained Change in Mental Status Sepsis Action Taken by Nursing 09/24/20 17:25 09/24/20 17:29 09/24/20 17:30 Temperature Temperature Source Pulse Rate 77 81 80 Pulse Rate [Apical] Pulse Rate from SpO2 Sensor 77 79 79 Pulse Rhythm Respiratory Rate 13 16 17 Respiratory Effort / Characteristics Respiratory Depth Respiratory Pattern Blood Pressure 93/57 L 91/63 L 83/58 L Blood Pressure [Left Arm] Blood Pressure Mean 69 72 66 Blood Pressure Mean [Left Arm] Pulse Oximetry 99 99 99 Oxygen Delivery Method Sepsis Recent Fever Within 48 Hours Sepsis New/Unexplained Change in Mental Status Sepsis Action Taken by Nursing 09/24/20 17:31 09/24/20 17:35 09/24/20 17:44 Temperature Temperature Source Pulse Rate 79 87 79 Pulse Rate [Apical] Pulse Rate from SpO2 Sensor 79 87 80 Pulse Rhythm Respiratory Rate 19 19 18 Respiratory Effort / Characteristics Respiratory Depth Respiratory Pattern Blood Pressure 70/53 L 85/58 L 85/61 L Blood Pressure [Left Arm] Blood Pressure Mean 58 67 69 Blood Pressure Mean [Left Arm] Pulse Oximetry 99 99 99 Oxygen Delivery Method Sepsis Recent Fever Within 48 Hours Sepsis New/Unexplained Change in Mental Status Sepsis Action Taken by Nursing 09/24/20 17:45 09/24/20 17:46 09/24/20 17:55 Temperature Temperature Source Pulse Rate 82 84 87 Pulse Rate [Apical] Pulse Rate from SpO2 Sensor 82 84 87 Pulse Rhythm Respiratory Rate 16 16 18 Respiratory Effort / Characteristics Respiratory Depth Respiratory Pattern Blood Pressure 91/58 L 94/65 L 74/50 L Blood Pressure [Left Arm] Blood Pressure Mean 69 74 58 Blood Pressure Mean [Left Arm] Pulse Oximetry 99 98 99 Oxygen Delivery Method Sepsis Recent Fever Within 48 Hours Sepsis New/Unexplained Change in Mental Status Sepsis Action Taken by Nursing 09/24/20 18:11 09/24/20 18:15 09/24/20 18:32 Temperature Temperature Source Pulse Rate 85 86 81 Pulse Rate [Apical] Pulse Rate from SpO2 Sensor 85 86 81 Pulse Rhythm Respiratory Rate 17 22 16 Respiratory Effort / Characteristics Respiratory Depth Respiratory Pattern Blood Pressure 78/52 L 69/54 L 81/53 L Blood Pressure [Left Arm] Blood Pressure Mean 60 59 62 Blood Pressure Mean [Left Arm] Pulse Oximetry 99 97 98 Oxygen Delivery Method Sepsis Recent Fever Within 48 Hours Sepsis New/Unexplained Change in Mental Status Sepsis Action Taken by Nursing 09/24/20 18:43 09/24/20 18:45 09/24/20 18:58 Temperature Temperature Source Pulse Rate 75 75 Pulse Rate [Apical] 72 Pulse Rate from SpO2 Sensor 76 75 Pulse Rhythm Respiratory Rate 17 15 18 Respiratory Effort / Characteristics Non-Labored Respiratory Depth Normal Respiratory Pattern Blood Pressure 93/68 L 93/61 L Blood Pressure [Left Arm] 93/61 L Blood Pressure Mean 76 71 Blood Pressure Mean [Left Arm] 71 Pulse Oximetry 99 98 98 Oxygen Delivery Method Sepsis Recent Fever Within 48 Hours Sepsis New/Unexplained Change in Mental Status Sepsis Action Taken by Nursing 09/24/20 19:54 Temperature Temperature Source Pulse Rate 84 Pulse Rate [Apical] Pulse Rate from SpO2 Sensor Pulse Rhythm Respiratory Rate 16 Respiratory Effort / Characteristics Respiratory Depth Respiratory Pattern Blood Pressure 102/64 Blood Pressure [Left Arm] Blood Pressure Mean Blood Pressure Mean [Left Arm] Pulse Oximetry 95 Oxygen Delivery Method Room Air Sepsis Recent Fever Within 48 Hours Sepsis New/Unexplained Change in Mental Status Sepsis Action Taken by Nursing Laboratory Data Result diagrams: 09/24/20 16:02 09/24/20 16:02 Lab Results 09/24/20 09/24/20 09/24/20 Range/Units 15:46 15:46 15:59 WBC (4.8-10.8) K/uL RBC (4.7-6.1) M/uL Hgb (14.0-18.0) g/dL Hct (42-52) % MCV (80-100) fL MCH (25-34) pg MCHC (32-36) g/dL RDW Std Deviation (36.4-46.3) fL RDW Coeff of Beth (11.5-14.5) % Plt Count (130-400) K/uL MPV (7.4-10.4) fL Immature Gran % (Auto) % Neut % (Auto) % Lymph % (Auto) % Mora % (Auto) % Eos % (Auto) % Baso % (Auto) % Neut # (Auto) (1.4-6.5) K/uL Lymph # (Auto) (1.2-3.4) K/uL Mora # (Auto) (0.11-0.59) K/uL Eos # (Auto) (0-0.5) K/uL Baso # (Auto) (0-0.2) K/uL Immature Gran # (Auto) (0.00-0.02) K/uL ESR (0-20) mm/hr PT (9.0-12.0) Seconds INR (0.9-1.1) APTT (21.0-31.0) Seconds PTT Ratio ABG pH ABG pCO2 ABG pO2 ABG HCO3 ABG O2 Saturation ABG Base Excess Malick Test Barometric Pressure Oxygen Given Sodium (136-145) mmol/L Potassium (3.5-5.1) mmol/L Chloride (98-107) mmol/L Carbon Dioxide (21-32) mmol/L Anion Gap (3-11) BUN (7-18) mg/dl Creatinine (0.6-1.4) mg/dl Est Cr Clr Drug Dosing Est GFR ( Amer) Est GFR (Non-Af Amer) BUN/Creatinine Ratio (10-20) Glucose (70-99) mg/dl POC Glucose 146 H (70-99) mg/dl Lactate (0.4-2.0) mmol/L Calcium (8.5-10.1) mg/dl Magnesium (1.8-2.4) mg/dl Total Bilirubin (0.2-1) mg/dl AST (15-37) U/L ALT (12-78) U/L Alkaline Phosphatase (45-117) U/L Troponin I (0-0.045) ng/ml C-Reactive Protein (0-0.29) mg/dl Total Protein (6.4-8.2) gm/dl Albumin (3.4-5.0) gm/dl Globulin (2.5-4.0) gm/dl Albumin/Globulin Ratio (0.9-2) Procalcitonin < 0.05 (0-0.5) ng/ml Stool Occult Bld Scrn (Negative) Stl C. diff Tox B Gene (Neg) Valproic Acid < 3 L (50-100) mcg/ml COVID-19 Eval Order SARS-CoV-2 (PCR) (Negative) Influenza Type A (PCR) (Neg) Influenza Type B (PCR) (Neg) RSV (RT-PCR) (Neg) 09/24/20 09/24/20 09/24/20 Range/Units 16:02 16:02 16:02 WBC 5.21 (4.8-10.8) K/uL RBC 3.67 L (4.7-6.1) M/uL Hgb 12.2 L (14.0-18.0) g/dL Hct 33.4 L (42-52) % MCV 91.0 (80-100) fL MCH 33.2 (25-34) pg MCHC 36.5 H (32-36) g/dL RDW Std Deviation 42.0 (36.4-46.3) fL RDW Coeff of Beth 12.5 (11.5-14.5) % Plt Count 232 (130-400) K/uL MPV 9.3 (7.4-10.4) fL Immature Gran % (Auto) 0.2 % Neut % (Auto) 64.5 % Lymph % (Auto) 21.9 % Mora % (Auto) 10.9 % Eos % (Auto) 1.5 % Baso % (Auto) 1.0 % Neut # (Auto) 3.36 (1.4-6.5) K/uL Lymph # (Auto) 1.14 L (1.2-3.4) K/uL Mora # (Auto) 0.57 (0.11-0.59) K/uL Eos # (Auto) 0.08 (0-0.5) K/uL Baso # (Auto) 0.05 (0-0.2) K/uL Immature Gran # (Auto) 0.01 (0.00-0.02) K/uL ESR (0-20) mm/hr PT 12.4 H (9.0-12.0) Seconds INR 1.2 H (0.9-1.1) APTT 22.9 (21.0-31.0) Seconds PTT Ratio 0.9 ABG pH ABG pCO2 ABG pO2 ABG HCO3 ABG O2 Saturation ABG Base Excess Malick Test Barometric Pressure Oxygen Given Sodium 126 L (136-145) mmol/L Potassium 3.5 (3.5-5.1) mmol/L Chloride 97 L (98-107) mmol/L Carbon Dioxide 22 (21-32) mmol/L Anion Gap 7.0 (3-11) BUN 12 (7-18) mg/dl Creatinine 0.89 (0.6-1.4) mg/dl Est Cr Clr Drug Dosing Not Reportable Est GFR ( Amer) 110.0 Est GFR (Non-Af Amer) 94.9 BUN/Creatinine Ratio 13.3 (10-20) Glucose 104 H (70-99) mg/dl POC Glucose (70-99) mg/dl Lactate (0.4-2.0) mmol/L Calcium 7.6 L (8.5-10.1) mg/dl Magnesium 1.8 (1.8-2.4) mg/dl Total Bilirubin 0.3 (0.2-1) mg/dl AST 10 L (15-37) U/L ALT 21 (12-78) U/L Alkaline Phosphatase 87 (45-117) U/L Troponin I < 0.015 (0-0.045) ng/ml C-Reactive Protein (0-0.29) mg/dl Total Protein 5.7 L (6.4-8.2) gm/dl Albumin 3.0 L (3.4-5.0) gm/dl Globulin 2.7 (2.5-4.0) gm/dl Albumin/Globulin Ratio 1.1 (0.9-2) Procalcitonin (0-0.5) ng/ml Stool Occult Bld Scrn (Negative) Stl C. diff Tox B Gene (Neg) Valproic Acid (50-100) mcg/ml COVID-19 Eval Order SARS-CoV-2 (PCR) (Negative) Influenza Type A (PCR) (Neg) Influenza Type B (PCR) (Neg) RSV (RT-PCR) (Neg) 09/24/20 09/24/20 09/24/20 Range/Units 16:45 16:45 17:59 WBC (4.8-10.8) K/uL RBC (4.7-6.1) M/uL Hgb (14.0-18.0) g/dL Hct (42-52) % MCV (80-100) fL MCH (25-34) pg MCHC (32-36) g/dL RDW Std Deviation (36.4-46.3) fL RDW Coeff of Beth (11.5-14.5) % Plt Count (130-400) K/uL MPV (7.4-10.4) fL Immature Gran % (Auto) % Neut % (Auto) % Lymph % (Auto) % Mora % (Auto) % Eos % (Auto) % Baso % (Auto) % Neut # (Auto) (1.4-6.5) K/uL Lymph # (Auto) (1.2-3.4) K/uL Mora # (Auto) (0.11-0.59) K/uL Eos # (Auto) (0-0.5) K/uL Baso # (Auto) (0-0.2) K/uL Immature Gran # (Auto) (0.00-0.02) K/uL ESR 2 (0-20) mm/hr PT (9.0-12.0) Seconds INR (0.9-1.1) APTT (21.0-31.0) Seconds PTT Ratio ABG pH ABG pCO2 ABG pO2 ABG HCO3 ABG O2 Saturation ABG Base Excess Malick Test Barometric Pressure Oxygen Given Sodium (136-145) mmol/L Potassium (3.5-5.1) mmol/L Chloride (98-107) mmol/L Carbon Dioxide (21-32) mmol/L Anion Gap (3-11) BUN (7-18) mg/dl Creatinine (0.6-1.4) mg/dl Est Cr Clr Drug Dosing Est GFR ( Amer) Est GFR (Non-Af Amer) BUN/Creatinine Ratio (10-20) Glucose (70-99) mg/dl POC Glucose (70-99) mg/dl Lactate (0.4-2.0) mmol/L Calcium (8.5-10.1) mg/dl Magnesium (1.8-2.4) mg/dl Total Bilirubin (0.2-1) mg/dl AST (15-37) U/L ALT (12-78) U/L Alkaline Phosphatase (45-117) U/L Troponin I (0-0.045) ng/ml C-Reactive Protein (0-0.29) mg/dl Total Protein (6.4-8.2) gm/dl Albumin (3.4-5.0) gm/dl Globulin (2.5-4.0) gm/dl Albumin/Globulin Ratio (0.9-2) Procalcitonin (0-0.5) ng/ml Stool Occult Bld Scrn (Negative) Stl C. diff Tox B Gene (Neg) Valproic Acid (50-100) mcg/ml COVID-19 Eval Order CovFluRsv at [facility] SARS-CoV-2 (PCR) NEGATIVE (Negative) Influenza Type A (PCR) Negative (Neg) Influenza Type B (PCR) Negative (Neg) RSV (RT-PCR) Negative (Neg) 09/24/20 09/24/20 09/24/20 Range/Units 17:59 17:59 18:40 WBC (4.8-10.8) K/uL RBC (4.7-6.1) M/uL Hgb (14.0-18.0) g/dL Hct (42-52) % MCV (80-100) fL MCH (25-34) pg MCHC (32-36) g/dL RDW Std Deviation (36.4-46.3) fL RDW Coeff of Beth (11.5-14.5) % Plt Count (130-400) K/uL MPV (7.4-10.4) fL Immature Gran % (Auto) % Neut % (Auto) % Lymph % (Auto) % Mora % (Auto) % Eos % (Auto) % Baso % (Auto) % Neut # (Auto) (1.4-6.5) K/uL Lymph # (Auto) (1.2-3.4) K/uL Mora # (Auto) (0.11-0.59) K/uL Eos # (Auto) (0-0.5) K/uL Baso # (Auto) (0-0.2) K/uL Immature Gran # (Auto) (0.00-0.02) K/uL ESR (0-20) mm/hr PT (9.0-12.0) Seconds INR (0.9-1.1) APTT (21.0-31.0) Seconds PTT Ratio ABG pH ABG pCO2 ABG pO2 ABG HCO3 ABG O2 Saturation ABG Base Excess Malick Test Barometric Pressure Oxygen Given Sodium (136-145) mmol/L Potassium (3.5-5.1) mmol/L Chloride (98-107) mmol/L Carbon Dioxide (21-32) mmol/L Anion Gap (3-11) BUN (7-18) mg/dl Creatinine (0.6-1.4) mg/dl Est Cr Clr Drug Dosing Est GFR ( Amer) Est GFR (Non-Af Amer) BUN/Creatinine Ratio (10-20) Glucose (70-99) mg/dl POC Glucose (70-99) mg/dl Lactate 2.4 H* (0.4-2.0) mmol/L Calcium (8.5-10.1) mg/dl Magnesium (1.8-2.4) mg/dl Total Bilirubin (0.2-1) mg/dl AST (15-37) U/L ALT (12-78) U/L Alkaline Phosphatase (45-117) U/L Troponin I (0-0.045) ng/ml C-Reactive Protein < 0.29 (0-0.29) mg/dl Total Protein (6.4-8.2) gm/dl Albumin (3.4-5.0) gm/dl Globulin (2.5-4.0) gm/dl Albumin/Globulin Ratio (0.9-2) Procalcitonin (0-0.5) ng/ml Stool Occult Bld Scrn (Negative) Stl C. diff Tox B Gene Negative Cdiff Gene (Neg) Valproic Acid (50-100) mcg/ml COVID-19 Eval Order SARS-CoV-2 (PCR) (Negative) Influenza Type A (PCR) (Neg) Influenza Type B (PCR) (Neg) RSV (RT-PCR) (Neg) 09/24/20 09/24/20 Range/Units 18:40 19:37 WBC (4.8-10.8) K/uL RBC (4.7-6.1) M/uL Hgb (14.0-18.0) g/dL Hct (42-52) % MCV (80-100) fL MCH (25-34) pg MCHC (32-36) g/dL RDW Std Deviation (36.4-46.3) fL RDW Coeff of Beth (11.5-14.5) % Plt Count (130-400) K/uL MPV (7.4-10.4) fL Immature Gran % (Auto) % Neut % (Auto) % Lymph % (Auto) % Mora % (Auto) % Eos % (Auto) % Baso % (Auto) % Neut # (Auto) (1.4-6.5) K/uL Lymph # (Auto) (1.2-3.4) K/uL Mora # (Auto) (0.11-0.59) K/uL Eos # (Auto) (0-0.5) K/uL Baso # (Auto) (0-0.2) K/uL Immature Gran # (Auto) (0.00-0.02) K/uL ESR (0-20) mm/hr PT (9.0-12.0) Seconds INR (0.9-1.1) APTT (21.0-31.0) Seconds PTT Ratio ABG pH Cancelled ABG pCO2 Cancelled ABG pO2 Cancelled ABG HCO3 Cancelled ABG O2 Saturation Cancelled ABG Base Excess Cancelled Malick Test Cancelled Barometric Pressure Cancelled Oxygen Given Cancelled Sodium (136-145) mmol/L Potassium (3.5-5.1) mmol/L Chloride (98-107) mmol/L Carbon Dioxide (21-32) mmol/L Anion Gap (3-11) BUN (7-18) mg/dl Creatinine (0.6-1.4) mg/dl Est Cr Clr Drug Dosing Est GFR ( Amer) Est GFR (Non-Af Amer) BUN/Creatinine Ratio (10-20) Glucose (70-99) mg/dl POC Glucose (70-99) mg/dl Lactate (0.4-2.0) mmol/L Calcium (8.5-10.1) mg/dl Magnesium (1.8-2.4) mg/dl Total Bilirubin (0.2-1) mg/dl AST (15-37) U/L ALT (12-78) U/L Alkaline Phosphatase (45-117) U/L Troponin I (0-0.045) ng/ml C-Reactive Protein (0-0.29) mg/dl Total Protein (6.4-8.2) gm/dl Albumin (3.4-5.0) gm/dl Globulin (2.5-4.0) gm/dl Albumin/Globulin Ratio (0.9-2) Procalcitonin (0-0.5) ng/ml Stool Occult Bld Scrn Negative (Negative) Stl C. diff Tox B Gene (Neg) Valproic Acid (50-100) mcg/ml COVID-19 Eval Order SARS-CoV-2 (PCR) (Negative) Influenza Type A (PCR) (Neg) Influenza Type B (PCR) (Neg) RSV (RT-PCR) (Neg) Administered Medications Norepinephrine Bitartrate (Levophed/D5w) 8 mg in 508 mls @ 17.697 mls/hr IV .Q24H KLARISSA; Protocol Stop: 10/24/20 18:29 Last Admin: 09/24/20 18:33 Dose: 0.05 mcg/kg/min, 17.7 mls/hr Documented by: [id number] Cosigned by: [id number] Discontinued Medications Sodium Chloride (Nss 1000ml) 2,000 mls @ 999 mls/hr IV .Q2H1M ONE Stop: 09/24/20 18:01 Last Infusion: 09/24/20 18:17 Dose: 0 mls/hr Documented by: [id number] Admin: 09/24/20 16:15 Dose: 999 mls/hr Documented by: [id number] Sodium Chloride (Nss 1000ml) 1,000 mls @ 999 mls/hr IV .Q1H1M ONE Stop: 09/24/20 19:24 Last Infusion: 09/24/20 19:52 Dose: 0 mls/hr Documented by: [id number] Admin: 09/24/20 18:33 Dose: 999 mls/hr Documented by: [id number] Ioversol (Optiray 350 500ml) 109 ml IV ONCE ONE Stop: 09/24/20 15:57 Last Admin: 09/24/20 15:56 Dose: 109 ml Documented by: [id number] Imaging Data Radiologist's Impression: Head CT 09/24/20 15:32 CT head/brain wo con CLINICAL HISTORY: 55 years-old Male with Stroke Like Symptoms. Acute strokelike symptoms TECHNIQUE: Multiple axial CT images of the head were obtained without contrast. A dose lowering technique was utilized adhering to the principles of ALARA. COMPARISON: 04/21/2017 FINDINGS: No acute intracranial hemorrhage, midline shift, intracranial mass, hydrocephalus, territorial ischemia or abnormal extra-axial collection. Age- related involutional changes with chronic microvascular ischemic disease. Numerous chronic infarct with encephalomalacia noted which notably involves the frontal lobes, left temporal and right parietal lobes. Small chronic infarcts of the right cerebral hemisphere jaeger radiata. The calvarium is intact. Metallic suture material the anterior wall left maxillary sinus. Findings suggestive of prior bilateral lens repair. Unchanged 4 mm metallic density structure of the right occipital subcutaneous tissues. The paranasal sinuses, mastoid air cells, and middle ear cavities are clear. IMPRESSION: Chronic findings as above without acute intracranial abnormality. ACT 112: Negative or not required by law. The above report was generated using voice recognition software. It may contain grammatical, syntax or spelling errors. Electronically signed by: Oneal Durand M.D. 09/24/2020 3:58 PM Head CTA 09/24/20 15:32 CT angio head w con CLINICAL HISTORY: Stroke Like Symptoms TECHNIQUE: CT angiography of the head was performed in a dynamic helical fashion during intravenous administration of 109 cc cc of Optiray. MIP imaging was performed. A dose lowering technique was utilized adhering to the principles of ALARA. CT DOSE: 1467.03 mGy.cm COMPARISON STUDY: No previous studies for comparison. FINDINGS: There are no lesion suspicious for aneurysm. There is no major intracranial branch occlusion. The dural venous sinuses appear patent bilaterally. There is a moderate stenosis of the right middle cerebral artery at the bifurcation level. There is a mild stenosis of the left middle cerebral artery just distal to the bifurcation. 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 IMPRESSION: 1. No evidence of major intracranial branch occlusion 2. No evidence of aneurysm 3. Bilateral middle cerebral artery stenotic lesions right more severe than left ACT 112: Negative or not required by law. Electronically signed by: Brett Payton M.D. 09/24/2020 4:09 PM Neck CTA 09/24/20 15:32 CT angio neck with con CLINICAL HISTORY: Stroke Like Symptoms RIGHT FACIAL DROOP. SLURRED SPEECH COMPARISON STUDY: No previous studies for comparison. TECHNIQUE: CT angiography was performed from the aortic arch to the skull base. MIP imaging was performed. The patient was scanned in a dynamic helical fashion during intravenous administration of 109 cc of Optiray. A dose lowering technique was utilized adhering to the principles of ALARA. CT DOSE: Technique: CT angiogram of the carotid and vertebral arteries was obtained using intravenous contrast and 3-D reconstruction. NASCET criteria was utilized. Findings: The right carotid revealed no evidence of aneurysm and no evidence of dissection. There is no evidence of hemodynamic significant stenosis. There are moderate atheromatous changes at the level of the left carotid bulb which results in a 50% diameter stenosis of the internal carotid. There is a high-grade stenosis of the left external carotid artery. There is no evidence of hemodynamically significant vertebral stenosis. There is no evidence of vertebral dissection. IMPRESSION: 1. Moderate atheromatous changes at the level the left carotid bulb with a 50% diameter stenosis of the proximal left internal carotid artery 2. High-grade stenosis of the left external carotid artery 3. No evidence of right internal carotid artery stenosis. No evidence of vertebral artery stenosis. ACT 112: Negative or not required by law. Electronically signed by: Brett Payton M.D. 09/24/2020 4:05 PM Chest X-Ray 09/24/20 16:05 XR chest 1V portable CLINICAL HISTORY: Weakness COMPARISON STUDY: 04/21/2017 FINDINGS: The cardiac and mediastinal contours are normal. There is no evidence of focal pulmonary consolidation. There is no evidence of failure. No pleural effusions are visualized.[Since the prior study, the endotracheal tube has been removed. Degenerative changes are present within the right AC joint. There is an old left clavicular fracture. IMPRESSION: No active disease in the chest. ACT 112: Negative or not required by law. Electronically signed by: Brett Payton M.D. 09/24/2020 4:40 PM Discharge Plan Visit Data Chief Complaint: Stroke Alert Stated Complaint: [facility] ED Provider: Enrique Villa Discharge Problem: Transient cerebral ischemia, Stroke-like symptoms, Acute hypotension, Near syncope Discharge Instructions Interventions: ED Discharge Assessment Last Done: 09/24/20 19:54 Forms Stand Alone Forms: [facility] Prescriptions Prescriptions: No Action multivitamin Tablet 1 tab PO DAILY RF: 0 benztropine 0.5 mg tablet 0.5 mg PO DAILY RF: 0 olanzapine 5 mg tablet 5 mg PO HS RF: 0 thiamine HCl (vitamin B1) 100 mg Tablet 100 mg PO DAILY RF: 0 clopidogrel 75 mg tablet 75 mg PO DAILY RF: 0 allopurinol 100 mg tablet 100 mg PO BID RF: 0 aspirin [Aspir-Low] 81 mg Tablet,Delayed Release (Dr/Ec) 81 mg PO DAILY RF: 0 folic acid 1 mg Tablet 1 mg PO DAILY RF: 0 mirtazapine 15 mg tablet 15 mg PO HS RF: 0 lisinopril 40 mg tablet 40 mg PO DAILY RF: 0 sertraline 50 mg tablet 50 mg PO QAM RF: 0 quetiapine [Seroquel] 50 mg Tablet 50 mg PO HS RF: 0 quetiapine [Seroquel] 50 mg Tablet 75 mg PO QAM RF: 0 melatonin 5 mg Tablet 5 mg PO HS RF: 0 cholecalciferol (vitamin D3) [Vitamin D3] 125 mcg (5,000 unit) Tablet 125 mcg PO DAILY RF: 0 acetaminophen [Tylenol] 325 mg Tablet 650 mg PO Q6 PRN (Reason: Fever Or Pain) RF: 0 tramadol 50 mg tablet 50 mg PO BID RF: 0 carbamazepine [Tegretol] 200 mg tablet 400 mg PO BID RF: 0 magnesium hydroxide [Milk of Magnesia] 400 mg/5 mL Suspension 30 ml PO DAILY PRN (Reason: Constipation) RF: 0 gabapentin 100 mg capsule 200 mg PO BID RF: 0 diclofenac sodium 1 % gel 4 g TOPICAL QID PRN (Reason: Pain) RF: 0 Referrals Referrals: Leticia Arellano [Primary Care Provider] - Discharge Problem: Transient cerebral ischemia Qualifiers: Transient cerebral ischemia type: unspecified Qualified Code(s): G45.9 - Transient cerebral ischemic attack, unspecified
--- NOTE | 2020-09-24 16:00 | CT Scan Report ---
CT head/brain wo con CLINICAL HISTORY: 55 years-old Male with Stroke Like Symptoms. Acute strokelike symptoms TECHNIQUE: Multiple axial CT images of the head were obtained without contrast. A dose lowering tech nique was utilized adhering to the principles of ALARA. COMPARISON: 04/21/2017 FINDINGS: No acute intracranial hemorrhage, midline shift, intracranial mass, hydrocephalus, territorial ischem ia or abnormal extra-axial collection. Age-related involutional changes with chronic microvascular is chemic disease. Numerous chronic infarct with encephalomalacia noted which notably involves the front al lobes, left temporal and right parietal lobes. Small chronic infarcts of the right cerebral hemisp here jaeger radiata. The calvarium is intact. Metallic suture material the anterior wall left maxillary sinus. Findings guerrero ggestive of prior bilateral lens repair. Unchanged 4 mm metallic density structure of the right occip ital subcutaneous tissues. The paranasal sinuses, mastoid air cells, and middle ear cavities are grupo r. IMPRESSION: Chronic findings as above without acute intracranial abnormality. ACT 112: Negative or not required by law. The above report was generated using voice recognition software. It may contain grammatical, syntax o r spelling errors. Electronically signed by: Oneal Durand M.D. 09/24/2020 3:58 PM
[2020-09-24] MEDS ORDERED: SODIUM CHLORIDE 0.9% 1000ML 2,000 ML IV ONE (16:01)
--- NOTE | 2020-09-24 16:06 | CT Scan Report ---
CT angio neck with con CLINICAL HISTORY: Stroke Like Symptoms RIGHT FACIAL DROOP. SLURRED SPEECH COMPARISON STUDY: No previous studies for comparison. TECHNIQUE: CT angiography was performed from the aortic arch to the skull base. MIP imaging was perfo rmed. The patient was scanned in a dynamic helical fashion during intravenous administration of 109 c c of Optiray. A dose lowering technique was utilized adhering to the principles of ALARA. CT DOSE: Technique: CT angiogram of the carotid and vertebral arteries was obtained using intravenous contrast and 3-D reconstruction. NASCET criteria was utilized. Findings: The right carotid revealed no evidence of aneurysm and no evidence of dissection. There is no evidenc e of hemodynamic significant stenosis. There are moderate atheromatous changes at the level of the left carotid bulb which results in a 50% diameter stenosis of the internal carotid. There is a high-grade stenosis of the left external caroti d artery. There is no evidence of hemodynamically significant vertebral stenosis. There is no evidence of verte bral dissection. IMPRESSION: 1. Moderate atheromatous changes at the level the left carotid bulb with a 50% diameter stenosis of t he proximal left internal carotid artery 2. High-grade stenosis of the left external carotid artery 3. No evidence of right internal carotid artery stenosis. No evidence of vertebral artery stenosis. ACT 112: Negative or not required by law. Electronically signed by: Brett Payton M.D. 09/24/2020 4:05 PM
--- NOTE | 2020-09-24 16:10 | CT Scan Report ---
CT angio head w con CLINICAL HISTORY: Stroke Like Symptoms TECHNIQUE: CT angiography of the head was performed in a dynamic helical fashion during intravenous a dministration of 109 cc cc of Optiray. MIP imaging was performed. A dose lowering technique was utili zed adhering to the principles of ALARA. CT DOSE: 1467.03 mGy.cm COMPARISON STUDY: No previous studies for comparison. FINDINGS: There are no lesion suspicious for aneurysm. There is no major intracranial branch occlusio n. The dural venous sinuses appear patent bilaterally. There is a moderate stenosis of the right midd le cerebral artery at the bifurcation level. There is a mild stenosis of the left middle cerebral art nataly just distal to the bifurcation. 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 IMPRESSION: 1. No evidence of major intracranial branch occlusion 2. No evidence of aneurysm 3. Bilateral middle cerebral artery stenotic lesions right more severe than left ACT 112: Negative or not required by law. Electronically signed by: Brett Payton M.D. 09/24/2020 4:09 PM
[2020-09-24 16:16] LABS: Basophils # (auto) 0.05 K/uL (0-0.2); Eosinophils # (auto) 0.08 K/uL (0-0.5); Eosinophils % (auto) 1.5 %; Hematocrit (blood only) 33.4 % (42-52); Hemoglobin 12.2 g/dL (14.0-18.0); Immature Granulocytes # (auto) 0.01 K/uL (0.00-0.02); Immature Granulocytes % (auto) 0.2 %; Lymphocytes # (auto) 1.14 K/uL (1.2-3.4); Lymphocytes % (auto) 21.9 %; Mean Corpuscular Hemoglobin 33.2 pg (25-34); Mean Corpuscular Hgb Conc 36.5 g/dL (32-36); Mean Platelet Volume 9.3 fL (7.4-10.4); Monocytes # (auto) 0.57 K/uL (0.11-0.59); Monocytes % (auto) 10.9 %; Neutrophils # (auto) 3.36 K/uL (1.4-6.5); Neutrophils % (auto) 64.5 %; Platelet Count 232 K/uL (130-400); RDW Coefficient of Variation 12.5 % (11.5-14.5); Red Blood Count 3.67 M/uL (4.7-6.1); White Blood Count 5.21 K/uL (4.8-10.8)
[2020-09-24 16:26] LABS: INR 1.2 (0.9-1.1); Partial Thromboplastin Ratio 0.9; Partial Thromboplastin Time 22.9 Seconds (21.0-31.0); Prothrombin Time 12.4 Seconds (9.0-12.0)
[2020-09-24 16:32] LABS: Alanine Aminotransferase 21 U/L (12-78); Aspartate Aminotransferase 10 U/L (15-37); BUN Creatinine Ratio 13.3 (10-20); Blood Urea Nitrogen 12 mg/dl (7-18); Calcium 7.6 mg/dl (8.5-10.1); Carbon Dioxide 22 mmol/L (21-32); Chloride 97 mmol/L (98-107); Est GFR (Non-African American) 94.9; Glucose 104 mg/dl (70-99); Magnesium 1.8 mg/dl (1.8-2.4); Potassium 3.5 mmol/L (3.5-5.1); Sodium 126 mmol/L (136-145)
[2020-09-24 16:37] LABS: Albumin Globulin Ratio 1.1 (0.9-2); Alkaline Phosphatase 87 U/L (45-117); Bilirubin,Total 0.3 mg/dl (0.2-1); Globulin 2.7 gm/dl (2.5-4.0); Total Protein 5.7 gm/dl (6.4-8.2); Troponin I < 0.015 ng/ml (0-0.045)
--- NOTE | 2020-09-24 16:41 | XRay Report ---
XR chest 1V portable CLINICAL HISTORY: Weakness COMPARISON STUDY: 04/21/2017 FINDINGS: The cardiac and mediastinal contours are normal. There is no evidence of focal pulmonary co nsolidation. There is no evidence of failure. No pleural effusions are visualized.[Since the prior st udy, the endotracheal tube has been removed. Degenerative changes are present within the right AC kisha nt. There is an old left clavicular fracture. IMPRESSION: No active disease in the chest. ACT 112: Negative or not required by law. Electronically signed by: Brett Payton M.D. 09/24/2020 4:40 PM
--- NOTE | 2020-09-24 16:48 | Electrocardiogram Report ---
Test Reason : Blood Pressure : / mmHG Vent. Rate : 064 BPM Atrial Rate : 064 BPM P-R Int : 190 ms QRS Dur : 104 ms QT Int : 418 ms P-R-T Axes : 074 -48 034 degrees QTc Int : 431 ms Normal sinus rhythm Left anterior fascicular block Pulmonary disease pattern Abnormal ECG When compared with ECG of 21-APR-2017 20:43, No significant change was found Confirmed by Marcos Pringle ([id number]) on 09/24/2020 4:48:10 PM Referred By: Confirmed By:Marcos Pringle
[2020-09-24 17:49] LABS: Influenza A virus by PCR Negative (Neg); Influenza B virus by PCR Negative (Neg); RSV by PCR Negative (Neg); SARS CoV2 RNA(COVID-19) InHosp NEGATIVE (Negative)
[2020-09-24] MEDS ORDERED: CEFEPIME 2,000 MG/20 ML VIAL IV STA (18:14)
[2020-09-24] MEDS ORDERED: SODIUM CHLORIDE 0.9% 1000ML 1,000 ML IV ONE (18:24)
[2020-09-24] MEDS ORDERED: STAT IV Infusion **Titration per Protocol STA (18:26)
[2020-09-24] MEDS ORDERED: NOREPINEPHRINE/D5W 8 MG/508 ML BAG IV SCH (18:30)
--- NOTE | 2020-09-24 19:02 | History & Physical Report ---
Date of Service September 24, 2020 Assessment & Plan (1) Hypotension: Aleksander is a 55 year old male with a history of bipolar disorder, HTN, CVA in 2017, MDD, chronic viral hepatitis C who is a resident at [facility] who presented following syncope and right sided facial droop, subsequently found to be hypotensive upon arrival. He requires admission to the ICU for hemodynamic support. 1. Stroke-like Symptoms -- resolved prior to arrival - Patient does have h/o TBI + CVA in 2017 with evidence of numerous chronic infarcts and encephalomalacia noted in the frontal, left temporal, and right parietal lobes and elsewhere - Per [facility], was at mother's house when he had an episode of syncope followed by right sided facial droop and dysarthria, HRs in 30s --> symptoms resolved prior to arrival - Baseline mentation is "walking around, has dementia, normal for him to not know where he is." - Work-up as follows, inclusive of stroke alert in ED w/ C Teleconsult - Last known normal around 1430 on 09/24 - Head CT -- numerous chronic infarcts with encephalomalacia noted in the frontal, left temporal, and right parietal lobes and elsewhere - Neck CTA -- Moderate atheromatous changes at L carotid bulb with 50% stenosis of proximal L ICA ; high grade stenosis of L ECA - Head CTA -- No evidence of occlusion, aneurysm - ECG -- NSR with LAFB, no conduction or repolarization abnormalities - Na 126 (also noted in 04/2020) - No fever. No leukocytosis. Lactate 2.4 in setting of HoTN. Procal < 0.05 - Unclear if this may be abrasives sales representative of acute ischemic process and/or hypoperfusion in context of stenosis, previous infarcts - Lipid profile, A1c - Initiate statin especially in context of previous CVAs - Consult Neurology - Neuro checks q4h - PT, OT evals - NPO until passed dysphagia screen - TTE ordered 2. Hypotension -- without significant evidence of end organ damage - Unclear origin at present -- primarily suspect hypovolemia (?2/2 multiple BMs) vs. medication side effect - Upon arrival patient noted to be ~90/60, received 2L of NSS and initially responded well - Throughout course in ER, did receive >4L NSS d/t BPs persisting in 70-90/50- 70s; was not tachycardic at this time, on exam intermittent signs of hypoperfusion (thready pulse, capillary refill ~5 seconds) - Mild signs of volume depletion of exam but not significant - no obvious evidence of hemorrhage / reported in history / no trauma -- H&H 12.2/33.4 - Facility reporting that patient has been feeding/drinking well -- unsure of oversight in this - No prerenal MURALI - However patient has had >4 voluminous, fowl-smelling stools since arrival -- testing as below - Home meds that may have influence: gabapentin, lisinopril, olanzapine, Seroquel, tramadol // will hold until stabilized - Per facility, no additional doses given / patient does not have access - No leukocytosis, fever, recent illness symptoms, procalc normal, lactate 2.4 in setting of HoTN - Await UCX, BCX - No major signs of cardiogenic source. Troponin negative. ECG without repolarization abnormalities. No sxs reported by patient. * on chart review does have reported history of "drug overdose" -- unclear of details, will add on UDS - Consider CT-A/P once stabilized given persistence without clear source and +multiple BMs - Given poor response to fluids, initiated Levophed in ED - Continue aggressive mIVF 3. Multiple Voluminous Stools - Patient / staff not reporting significant history of increased BMs - On arrival to ED, had >4 large, semiformed malodorous stools - C. diff, stool cultures ordered - IVF as above - CT as above - Replete lytes as needed 4. Hyponatremia - Noted back in 04/2020 and again here - Unclear source at present -- given significant TBI/CVA history, do wonder if this may represent a central origin - No signs of volume overload on exam - Generally, renal function stable -- BUN 12 / Cr 0.89 - Continue NSS - Urine lytes, creatinine ordered for further w/u - AM Cortisol as above -- however no hypokalemia, -glycemia - [facility] qAM 5. Bipolar Disorder, MDD, Possible Mood Disorder - Facility has noted that patient can be aggressive at baseline - Noted on charts from [facility] - As above, will hold olanzapine, seroquil, sertraline, Tegretol, mirtazapine for now - Should consider resumption once BP normalizes Chronic Medical Conditions HTN: Hold lisinopril given HoTN Gout: Hold allopurinol H/O CVA: Continue statin, Plavix Code: Full code. POLST form in file from facility. Discussed with patient. Diet: NPO until dysphagia screen passed. Then heart healthy thereafter Fluids: NSS @ 125 + 20 mEq KCl PPX: SCDs. Hold anticoagulation given stroke w/u Dispo: ICU for intensive BP monitoring, management (2) Stroke-like symptoms: (3) Diarrhea: (4) Vitamin D deficiency: (5) Insomnia: (6) HTN (hypertension), benign: (7) Gout: (8) Major depressive disorder: (9) Bipolar disorder: (10) History of traumatic brain injury: (11) History of CVA (cerebrovascular accident): History of Present Illness Primary Care Provider: [facility] This is a 55-year-old male with a notable history of bipolar disorder, hyperte nsion, CVA in 2017, TBI, and MDD who is a resident at [facility] who presented following a syncopal events at his mother's house around 1430, found to have right-sided facial droop by EMS.History is taken both from patient and caretakers at his facility. The nurse at his facility notes that he was In his normal health visiting his mother earlier this afternoon, around 1430, when he suddenly slumped over his chair and went flaccid for almost 20 minutes. He was noted to have a heart rate in the 30s at that time; they were unable to get a blood pressure. There was no observed seizure-like activity; the patient was extremely somnolent and they were unable to arouse him. EMS was subsequently called, who did note that he had right-sided facial droop as well as some dysarthria. He was subsequently transferred to [facility] for further evaluation and to rule out stroke Per nursing, his baseline mentation is "walking around, has dementia, normal for him to not know where he is." They note that there have been no significant changes over the preceding days or weeks and his medication regimen, his eating habits (they note that he has been eating and drinking fine), and they deny observing any illness like symptoms or frequent visits to the bathroom. On review of the history with patient, he does report being in his normal health up through this time. He denies any recent symptoms of illness. He denies frequent nausea, vomiting, or diarrhea. Denies any chills, rigors or night sweats. He denies any chest pain, palpitations, shortness of breathboth now and within the last few days. He denies taking extra medication. Nursing staff administers his medication. In the ED, a stroke alert was activated. At that time the patient's symptoms Regarding facial droop and dysarthria had resolved. TPA was not administered. However, he was noted to be mildly hypotensive to around 90/60. He received a 2 L bolus of normal saline and did respond well, blood pressures returning to low normal range. He was noted to have a moderate hyponatremia to 126, but otherwise normal electrolytes. Valproate level was undetectable. CT of the head and CTA head/neck did demonstrate left external carotid stenosis. Shortly after his arrival however, his blood pressures did begin fluctuating between the 70 to mid 80 systolic range over 40-60 diastolic. He also had multiple (over 4) large, malodorous bowel movements. Throughout this time, he was still able to respond to questions, did have evidence of some hypoperfusion with capillary refill standing up to 4 to 5 seconds and a thready pulse. However, he was not tachycardic. An additional 2.5 L of normal saline were given, with very little response. As such, Levophed was initiated. A central line was placed. Patient was thereafter sent to the ICU for intensive monitoring and hemodynamic management. Allergies Allergy/AdvReac Type Severity Reaction Status Date / Time No Known Allergies Allergy Unverified 09/24/20 17:39 Home Medications Medication Instructions Recorded Confirmed Type acetaminophen [Tylenol] 650 mg PO Q6 PRN 09/24/20 09/24/20 History allopurinol 100 mg PO BID 09/24/20 09/24/20 History aspirin [Aspir-Low] 81 mg PO DAILY 09/24/20 09/24/20 History benztropine 0.5 mg PO DAILY 09/24/20 09/24/20 History carbamazepine [Tegretol] 400 mg PO BID 09/24/20 09/24/20 History cholecalciferol (vitamin D3) 125 mcg PO DAILY 09/24/20 09/24/20 History [Vitamin D3] clopidogrel 75 mg PO DAILY 09/24/20 09/24/20 History diclofenac sodium 4 g TOPICAL QID PRN 09/24/20 09/24/20 History folic acid 1 mg PO DAILY 09/24/20 09/24/20 History gabapentin 200 mg PO BID 09/24/20 09/24/20 History lisinopril 40 mg PO DAILY 09/24/20 09/24/20 History magnesium hydroxide [Milk of 30 ml PO DAILY PRN 09/24/20 09/24/20 History Magnesia] melatonin 5 mg PO HS 09/24/20 09/24/20 History mirtazapine 15 mg PO HS 09/24/20 09/24/20 History multivitamin 1 tab PO DAILY 09/24/20 09/24/20 History olanzapine 5 mg PO HS 09/24/20 09/24/20 History quetiapine [Seroquel] 50 mg PO HS 09/24/20 09/24/20 History quetiapine [Seroquel] 75 mg PO QAM 09/24/20 09/24/20 History sertraline 50 mg PO QAM 09/24/20 09/24/20 History thiamine HCl (vitamin B1) 100 mg PO DAILY 09/24/20 09/24/20 History tramadol 50 mg PO BID 09/24/20 09/24/20 History Past Med/Surg History Medical History (Updated 09/24/20 @ 23:27 by Farida Kong MD) Bipolar disorder Chronic viral hepatitis C Conduct disorder Elevated prostate specific antigen (PSA) Gout History of CVA (cerebrovascular accident) History of traumatic brain injury HTN (hypertension), benign Insomnia Major depressive disorder Vitamin D deficiency Family History Other Family history non-contributory Social History Smoking Status: Unknown if ever smoked Preferred Language: Kyrgyz Communication Ability: Effective Machine Try Out Setter Required: No Beliefs That Will Affect Care: None Current Living Situation: [facility] Feels Safe at Home: Yes Review of Systems Review of Systems: as per HPI Physical Exam Physical Exam: General: 55-year-old male who is lying back in his hospital bed in the Trendelenburg position, looking around the room upon my arrival. While he does intermittently close his eyes and appears more somnolent, he does promptly respond to questions. He was alert and oriented to person, place, and time of day. He was in no acute distress. HEENT: NCAT. Eyes - Sclera are white, anicteric, and without injection. No conjunctival pallor. PERRL. EOMs display full ROM bilaterally. Mouth - MMM with no tonsillar edema or exudates. Neck - no appreciable JVD. Cardiac: Heart sounds are difficult to appreciate and are subtle. Of what could be heard- normal rate and regular rhythm; S1 and S2 present with no murmurs, rubs, or gallops. Upper extremity pulses are thready, but palpable. Capillary refill on average was ~4-5 seconds. Pulmonary: Good respiratory effort with symmetric expansion of the chest. No use of accessory muscles. Lungs were clear to auscultation bilaterally with no crackles or wheezes. Abdominal: Normoactive bowel sounds. Abdomen was soft, nondistended, and non-te nder to palpation. Extremities: Upper and lower extremities are warm and well perfused. Radial and dorsalis pedis pulses were 2+ b/l. Capillary refill assessed in UE was < 3 sec. Neuro: - Somnolent, but alert and oriented to person, place, and time. - Cranial Nerves: CN I, IX, and X - not assessed. II - PERRL. III/IV/ - EOMs WNL. No nystagmus. V - jaw opening WNL. VII - Patient is able to smile symmetrically and keep eyes close against resistance. VIII - Patient is able to hear finger snapping equally and appropriately. Patient is able to shrug shoulders against resistance. XI - Soft palate raises equally and appropriately while saying "ah." XII - patient is able to stick out tongue and deviate from [id number] appropriately. - Motor: UE - Finger, wrist, elbow, and shoulder strength is 5/5 bilaterally. LE - Hip, knee, and ankle strength is 5/5 bilaterally. - Sensation: UE and LE sensation to light touch is grossly intact bilaterally. - Reflexes - Biceps 3+ b/l; brachioradialis 3+ b/l; patellar 3+ b/l. No clonus. - [id number]: WNL b/l. No dysmetria. Results & Data Results & Data ([facility]) Vital Signs (Past 12 Hours) Vital Signs Temp Pulse Resp BP Pulse Ox 09/24/20 18:45 75 15 93/61 L 98 09/24/20 18:43 75 17 93/68 L 99 09/24/20 18:32 81 16 81/53 L 98 09/24/20 18:15 86 22 69/54 L 97 09/24/20 18:11 85 17 78/52 L 99 09/24/20 17:55 87 18 74/50 L 99 09/24/20 17:46 84 16 94/65 L 98 09/24/20 17:45 82 16 91/58 L 99 09/24/20 17:44 79 18 85/61 L 99 09/24/20 17:35 87 19 85/58 L 99 09/24/20 17:31 79 19 70/53 L 99 09/24/20 17:30 80 17 83/58 L 99 09/24/20 17:29 81 16 91/63 L 99 09/24/20 17:25 77 13 93/57 L 99 09/24/20 17:22 76 17 88/59 L 99 09/24/20 17:21 79 23 75/55 L 99 09/24/20 17:20 85 17 70/50 L 99 09/24/20 17:18 86 17 71/50 L 99 09/24/20 17:16 90 18 67/51 L 100 09/24/20 17:15 90 19 74/47 L 100 09/24/20 17:03 81 14 117/77 98 09/24/20 16:47 75 15 108/65 99 09/24/20 16:45 78 13 89/63 L 98 09/24/20 16:30 75 15 103/67 98 09/24/20 16:17 67 17 107/70 96 09/24/20 15:40 36.6 C 68 16 107/74 95 Code Status & VTE Plan VTE Prophylaxis Plan VTE Prophylaxis will be ordered: Yes Supervising Physician Co-Signing Physician Notes I personally examined the patient and verified all byrnes points of history and exam, discussed case, and agree with decision making with Dr. Ye with the following additions/exceptions: This patient is a 55-year-old male with a history of multiple CVAs, TBI, bipolar disorder, major depressive disorder, conduct disorder, gout, HTN, who presents to the ER after an episode of syncope while sitting in a chair at his mother's house. He was noted to be bradycardic and hypotensive when EMS arrived. He was also noted to have right facial droop and a stroke alert was called upon arrival to the ER. This is improved as his blood pressure improved and the telestroke neurologist thought that he was not a TPA candidate and that his symptoms might be coming from exacerbation of his old strokes from hypotension. CT angiogram of the head neck was negative for large vessel occlusion, just had 50% stenosis of the LICA and severe stenosis of the left external carotid artery . Shortly after hospital service was consulted for admission, however his blood pressure dropped to the 70s systolic and he was further resuscitated with IV fluids which did not help. He was started on Levophed and transferred to the ICU. He was mentating throughout the entire episode of hypotension and was able to answer questions and was oriented x2-3-he knew the year but not the month. He knew he was in the hospital but not which hospital. He denied any headache or lightheadedness, no chest pain or shortness of breath, no abdominal pains. He however had multiple large loose very foul-smelling nonbloody nonmelena bowel movements while in the ER. History and ROS reviewed as above Vitals reviewed Gen: AAOx 2-3, NAD HEENT: Anicteric sclerae, EOMI, PERRL CV: RRR no mgr nl S1S2 Pulm: CTAB no wcr Abd: +BS soft NT ND no masses Ext: No edema, 2+ DP pulses Skin: No rashes, warm/dry Neuro: Full strength throughout, cranial nerves II through XII intact, cooperative Laboratory values reviewed Imaging reviewed ECG reviewed Case discussed with the hospice social worker RIDDHI at the change of shift. 55-year-old male with history noted as above, here with syncope and hypotension with right-sided facial droop and possible weakness which resolved with improvement in blood pressure. Hypotension from unknown cause-perhaps secondary to hypovolemia plus medication side effect? Perhaps or some underlying infectious issue going on-blood cultures obtained, chest x-ray negative for pneumonia, UA negative for infection Check CT abdomen/pelvis when stabilized given the diarrhea Check C. difficile and Hemoccult Check cortisol level, TSH Support blood pressures to keep maps greater than 80 given possibility of new stroke although stroke seems less likely at this time. Consult neurology. Will await to see neurology recommendations to see if MRI is necessary For syncope, check echocardiogram, monitor on telemetry, support blood pressures with vasopressors and volume resuscitation Hyponatremia seems chronic and may be reset Osmo stat given history of traumatic brain injury and multiple strokes, is also on multiple medications which could cause SIADH Follow BMP Holding all psychiatric medications at this time Resident Activity Tracking Resident Involvement: Resident Care Provided Care Provided: Adult Hospital Medicine
[2020-09-24] MEDS ORDERED: ICU PROTOCOL FOR HYPERGLYCEMIA PRN (20:44)
[2020-09-24] MEDS: NSS + 20MEQ KCL 20 MEQ/1,000 ML BAG IV SCH (21:12)
[2020-09-24 22:17] LABS: Appearance Urine Clear (Clear); Bacteria Urine Automated Negative (Negative); Blood Urine Negative (Negative); Color Urine Dark Yellow; Epithelial Cell Urine Auto 20-30 /lpf (0-5); Glucose Urine UA Negative (Negative); Ketones Urine Trace (Negative); Leukocyte Esterase Urine Trace (Negative); Nitrite Urine Negative (Negative); Protein Urine Negative (Negative); RBC Urine Automated 0-4 /hpf (0-4); Specific Gravity Urine 1.037 (1.000-1.030); Urobilinogen Urine Negative (Negative)
[2020-09-24 22:22] LABS: Urine Potassium 34.1 mmol/L
[2020-09-24 22:24] LABS: Bilirubin Urine 1+ (Negative)
[2020-09-24 23:09] LABS: Amphetamines+Metham, Urine Neg (Neg); Barbiturates, Urine Neg (Neg); Benzodiazepine, Urine Neg (Neg); Cocaine, Urine Neg (Neg); MDMA (Ecstacy), Urine Neg (Neg); Methadone, Urine Neg (Neg); Opiate, Urine Neg (Neg); Phencyclidine, Urine Neg (Neg)
--- NOTE | 2020-09-24 23:43 | Billing Data ---
Date of Service September 24, 2020 Coding Level of Care Code 31824 Initial Inpt Care Lvl 3
[2020-09-25] MEDS ORDERED: PIPERACILL/TAZOBAC CONSULT ACTIVE PRN (00:46)
[2020-09-25] MEDS ORDERED: PIPERACILLIN/TAZOBACTAM 3.375 GM in DEXTROSE 5% 100 ML IV ONE (01:15)
--- NOTE | 2020-09-25 04:23 | Critical Care Consultation ---
Date of Consultation September 25, 2020 Assessment & Plan (1) Admitted to intensive care unit: Reason Critically Ill: 55-year-old male with near syncope event with associated hypotension not recovering with aggressive IV fluid resuscitation. Requiring vasopressor support. Requiring close hemodynamic monitoring and ongoing evaluation. NEURO - * CAM ICU: NEGATIVE * Near syncope: * Initially, it was felt as though the patient was having RIGHT-sided facial droop. Stroke alert was called, however with resuscitation with fluid, the patient was noted to have improvement. The patient appears to be vasculopathic with LEFT-sided carotid occlusions. Per teleneurology, goal is to improve blood pressure which will likely improve underlying symptomatology. TPA not felt to be warranted in this situation. * Continue to maintain appropriate MAPS and evaluate mental/neurological status. * Continue with ongoing hydration. * Wean down pressors as tolerated. * CT head as well as CTA head/neck were obtained which demonstrated no acute areas of ischemia. Chronic vessel disease with carotid stenosis noted. * Patient asymptomatic upon her evaluation in the ICU. * Bipolar/TBI/h/o CVA: * Home Rx when tolerated. CARDIAC/VASCULAR - * Hypotension: * Likely secondary to hypovolemia. * Patient with multiple large volume diarrheal stools in the emergency department. * Hydrated with 4 L crystalloid. * Levophed currently. Titrate down as tolerated. * EKG: NSR @ 64bpm. No ST/T-wave changes noted. QTc 431 ms. * Monitor on telemetry. RESPIRATORY - * No h/o pulmonary disease. * Saturating well on room air. GI/NUTRITION - * Diarrheal Stool w/ LLQ abd pain: * Agree w/ imaging of abd/pelvis. * Will initially proceed w/o contrast 2/2 recent contrast load from head/neck CTA. * Stool cultures pending. * C. Diff negative. * Will cover w/ antibiotics in the critically ill patient pending further differentiation of ?? sources. RENAL/LYTES - * Hyponatremia: * Chronic - * Burton in place - Strict I&Os. ENDO - * No h/o DM or Thyroid Dz * BSGs per unit protocol. ISS --> gtt per unit policy. HEME - * Stable H&H ID - * Diarrhea: * Stool/blood cultures pending. * Initially received Cefepime in the ED. * Will change to Zosyn for anaerobic coverage in the critically ill patient. * Will image abd/pelvis for ??infectious source. * Likely able to deescalate antibiotics promptly. * Lactate elevated. Will trend. LINES/IV ACCESS - * PIVs x2 * Foldy DVT PROPHYLAXIS - * SCDs I have personally spent 35 minutes of critical care time in the direct management of this patient. This is a life/limb threatening event. This includes time spent evaluating patient, direct bedside care, chart review, placing orders, interpretation of diagnostic studies, discussion with consultants, patient, and family members, as well as other required patient management activities. This time is exclusive of all separately billable procedures, and teaching time and separate from and in addition to any other critical care service time. Thank you for allowing us to participate in the care of this patient. Please refer to my attending physician's documentation for any further recommendations. (2) Hypotension: (3) Stroke-like symptoms: (4) Diarrhea: (5) Near syncope: (6) Acute hypotension: (7) History of CVA (cerebrovascular accident): (8) History of traumatic brain injury: (9) Bipolar disorder: (10) Major depressive disorder: (11) Conduct disorder: History of Present Illness Attending Physician: Farida Kong MD History of Present Illness Patient is a 55-year-old male with a significant past medical history of prior CVA, prior TBI, bipolar disorder, and history of respiratory arrest in 2017 secondary to aspiration event. Patient is a longtime resident at [facility]. Patient was apparently at his mother's house earlier today when he had a near syncopal event. Upon EMS arrival, the patient was noted to be hypotensive and there was a transient episode of bradycardia. Patient received IV fluid resuscitation in the emergency department, unfortunately, the patient's blood pressure did not improve and he was started on Levophed and transition to the ICU for ongoing management. Laboratory assessment demonstrated elevated lactate with no other significant findings. Patient had 4 large diarrheal bowel movements in the emergency department. Stool cultures are pending. The patient received IV cefepime in the emergency department. Blood cultures are pending. Chest x-ray demonstrated no acute findings. Initially, the patient was felt to have a RIGHT-sided facial droop. CT of the head and CTA of head/neck were obtained which demonstrated 50% stenosis of the LEFT ICA and high-grade stenosis of the LEFT external carotid artery. Patient was not felt to be candidate for TPA and it was felt best to increase patient's blood pressure which is likely resulting in any CVA-like symptoms. Upon evaluation in the ICU, the patient is awake, alert, and oriented. The patient is dysarthric. Apparently, per conversation with nursing staff via the patient's mother, this is not abnormal and she reports that she did speak with him and he is back to his baseline. Patient reports feeling better than when he initially arrived. He is making good urine. Levophed is currently running at 0.05 with systolics in the 90s to 100s. Patient unable to provide significant history secondary to baseline dysarthria. He does answer yes/no questions. He complains of some mild lower abdominal discomfort. Otherwise, the patient denies any headaches, dizziness, lightheadedness, chest pain, shortness of breath, nausea, vomiting, or bloody stools. Allergies Allergy/AdvReac Type Severity Reaction Status Date / Time No Known Allergies Allergy Unverified 09/24/20 17:39 Home Medications Medication Instructions Recorded Confirmed Type acetaminophen [Tylenol] 650 mg PO Q6 PRN 09/24/20 09/24/20 History allopurinol 100 mg PO BID 09/24/20 09/24/20 History aspirin [Aspir-Low] 81 mg PO DAILY 09/24/20 09/24/20 History benztropine 0.5 mg PO DAILY 09/24/20 09/24/20 History carbamazepine [Tegretol] 400 mg PO BID 09/24/20 09/24/20 History cholecalciferol (vitamin D3) 125 mcg PO DAILY 09/24/20 09/24/20 History [Vitamin D3] clopidogrel 75 mg PO DAILY 09/24/20 09/24/20 History diclofenac sodium 4 g TOPICAL QID PRN 09/24/20 09/24/20 History folic acid 1 mg PO DAILY 09/24/20 09/24/20 History gabapentin 200 mg PO BID 09/24/20 09/24/20 History lisinopril 40 mg PO DAILY 09/24/20 09/24/20 History magnesium hydroxide [Milk of 30 ml PO DAILY PRN 09/24/20 09/24/20 History Magnesia] melatonin 5 mg PO HS 09/24/20 09/24/20 History mirtazapine 15 mg PO HS 09/24/20 09/24/20 History multivitamin 1 tab PO DAILY 09/24/20 09/24/20 History olanzapine 5 mg PO HS 09/24/20 09/24/20 History quetiapine [Seroquel] 50 mg PO HS 09/24/20 09/24/20 History quetiapine [Seroquel] 75 mg PO QAM 09/24/20 09/24/20 History sertraline 50 mg PO QAM 09/24/20 09/24/20 History thiamine HCl (vitamin B1) 100 mg PO DAILY 09/24/20 09/24/20 History tramadol 50 mg PO BID 09/24/20 09/24/20 History Patient History Medical History Bipolar disorder Chronic viral hepatitis C Conduct disorder Elevated prostate specific antigen (PSA) Gout History of CVA (cerebrovascular accident) History of traumatic brain injury HTN (hypertension), benign Insomnia Major depressive disorder Vitamin D deficiency Family History Other Family history non-contributory Social History Smoking Status: Unknown if ever smoked Preferred Language: Filipino Communication Ability: Effective 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 All else were negative. Physical Exam Physical Exam: VITAL SIGNS - Vital signs and nursing notes were reviewed. GENERAL - 55-year-old male appearing his stated age who is in no acute distress. Awake, alert, but dysarthric (at baseline). HEAD - Normocephalic, Atraumatic. EYES - PERRL with EOMI bilaterally. Sclera anicteric. Palpebral conjunctiva pink and moist with no injection noted. EARS - No deformities of external structures noted on gross examination bilaterally. NOSE - Midline and without cyanosis. No epistaxis or purulent drainage noted. MOUTH/OROPHARYNX - Without perioral cyanosis. Buccal mucosa pink and moist and without leukoplakia. Tongue midline with equal elevation of palate bilaterally. NECK - Neck with FROM. Supple to palpation. No nuchal rigidity. LUNGS - Chest wall symmetric without accessory muscle use, intercostals retractions, or central cyanosis. Normal vesicular breath sounds CTA B/L. No wheezes, rales, or rhonchi appreciated. CARDIAC - RRR with S1/S2. No murmur, rubs, or gallops appreciated. ABDOMEN - Abdominal contour flat without pulsations or visible masses. BS normoactive all four quadrants. Mild TTP to the LEFT lower quadrant. No palpable masses, hepatosplenomegaly, or ascites noted. EXTREMITIES - No pretibial edema present. +3/5 radial and dorsalis pedis pulses palpated throughout. FROM of the bilateral upper/lower extremities with +4/5 strength noted in UE/LE bilaterally. NEUROLOGIC - Cranial nerves II through XII grossly intact. Sensory intact to light touch throughout. Dysarthria - reported patient's baseline. PSYCH -Awake and alert. Answers questions appropriately. Results & Data Results [facility] ([facility] Vital Signs (Past 12 Hours) Vital Signs Temp Pulse Pulse Resp BP BP Pulse Ox 09/25/20 03:00 99 H 20 119/74 97 09/25/20 02:30 98 H 20 111/74 98 09/25/20 02:00 95 H 21 126/72 97 09/25/20 01:30 94 H 18 101/73 97 09/25/20 01:00 94 H 19 103/61 98 09/25/20 00:30 88 22 99/65 L 98 09/25/20 00:00 36.4 C L 86 18 101/66 98 09/24/20 23:30 86 22 98 09/24/20 23:08 76 20 102/72 99 09/24/20 22:30 77 23 97/70 L 99 09/24/20 22:17 79 24 112/72 99 09/24/20 22:00 77 20 121/66 100 09/24/20 21:47 79 19 104/72 99 09/24/20 21:30 82 22 107/60 99 09/24/20 21:17 79 24 109/78 100 09/24/20 21:00 83 17 88/51 L 99 09/24/20 20:30 92 H 22 98 09/24/20 20:17 35.5 C L 95 H 14 91/57 L 97 09/24/20 19:54 84 16 102/64 95 09/24/20 18:58 72 18 93/61 L 98 09/24/20 18:45 75 15 93/61 L 98 09/24/20 18:43 75 17 93/68 L 99 09/24/20 18:32 81 16 81/53 L 98 09/24/20 18:15 86 22 69/54 L 97 09/24/20 18:11 85 17 78/52 L 99 09/24/20 17:55 87 18 74/50 L 99 09/24/20 17:46 84 16 94/65 L 98 09/24/20 17:45 82 16 91/58 L 99 09/24/20 17:44 79 18 85/61 L 99 09/24/20 17:35 87 19 85/58 L 99 09/24/20 17:31 79 19 70/53 L 99 09/24/20 17:30 80 17 83/58 L 99 09/24/20 17:29 81 16 91/63 L 99 09/24/20 17:25 77 13 93/57 L 99 09/24/20 17:22 76 17 88/59 L 99 09/24/20 17:21 79 23 75/55 L 99 09/24/20 17:20 85 17 70/50 L 99 09/24/20 17:18 86 17 71/50 L 99 09/24/20 17:16 90 18 67/51 L 100 09/24/20 17:15 90 19 74/47 L 100 09/24/20 17:03 81 14 117/77 98 09/24/20 16:47 75 15 108/65 99 09/24/20 16:45 78 13 89/63 L 98 09/24/20 16:30 75 15 103/67 98 09/24/20 16:17 67 17 107/70 96 Coding Level of Care Code Critical Care 1st 30-74 mins Diagnoses Admitted to intensive care unit Z78.9 Hypotension I95.9 Stroke-like symptoms R29.90 Diarrhea R19.7 Near syncope R55 Acute hypotension I95.9 History of CVA (cerebrovascular accident) Z86.73 History of traumatic brain injury Z87.820 Bipolar disorder F31.9 Major depressive disorder F32.9 Conduct disorder F91.9 Time Spent (min) 35
[2020-09-25 05:08] LABS: Hematocrit (blood only) 40.3 % (42-52); Hemoglobin 14.7 g/dL (14.0-18.0); Immature Granulocytes # (auto) 0.03 K/uL (0.00-0.02); Immature Granulocytes % (auto) 0.2 %; Lymphocytes # (auto) 0.61 K/uL (1.2-3.4); Lymphocytes % (auto) 3.5 %; Mean Corpuscular Hemoglobin 33.2 pg (25-34); Mean Corpuscular Hgb Conc 36.5 g/dL (32-36); Mean Platelet Volume 9.5 fL (7.4-10.4); Monocytes # (auto) 0.65 K/uL (0.11-0.59); Monocytes % (auto) 3.7 %; Neutrophils # (auto) 16.16 K/uL (1.4-6.5); Neutrophils % (auto) 92.6 %; Platelet Count 261 K/uL (130-400); RDW Coefficient of Variation 12.8 % (11.5-14.5); RDW Standard Deviation 42.9 fL (36.4-46.3); Red Blood Count 4.43 M/uL (4.7-6.1); White Blood Count 17.45 K/uL (4.8-10.8)
[2020-09-25] MEDS: NSS + 20MEQ KCL 20 MEQ/1,000 ML BAG IV SCH (05:21)
[2020-09-25] MEDS: PIPERACILLIN/TAZOBACTAM 3.375 GM in DEXTROSE 5% 100 ML IV SCH ×4 (05:23→22:10)
[2020-09-25 05:25] LABS: BUN Creatinine Ratio 12.4 (10-20); Calcium 7.7 mg/dl (8.5-10.1); Creatinine Clr Calc Pharmacy 74.5 ml/min; Est GFR (African American) 77.3; Est GFR (Non-African American) 66.7; Magnesium 1.9 mg/dl (1.8-2.4); Potassium 4.5 mmol/L (3.5-5.1)
[2020-09-25] MEDS ORDERED: NORMOSOL-R 1,000 ML IV SCH (05:45)
[2020-09-25] MEDS: MAGNESIUM OXIDE 400 MG TAB PO SCH ×2 (05:49→09:43)
[2020-09-25 06:00] LABS: Estimated Average Glucose 103 mg/dl; Hemoglobin A1C 5.2 % (4.5-5.6)
[2020-09-25] MEDS ORDERED: ICU ELECTROLYTE REPLACEMENT PROTOCOL SCH (06:00)
[2020-09-25 06:12] LABS: Phosphorus 1.7 mg/dl (2.5-4.9); Thyroid Stimulating Hormone 0.983 uIu/ml (0.300-4.500)
[2020-09-25] MEDS ORDERED: SODIUM PHOSPHATE 3 MMOL/1 ML INFUSION IV STA (06:14)
[2020-09-25] MEDS ORDERED: SODIUM PHOSPHATE 21 MMOL in SODIUM CHLORIDE 0.9% 500 ML IV ONE (06:30)
--- NOTE | 2020-09-25 07:39 | CT Scan Report ---
CT SCAN OF THE ABDOMEN AND PELVIS WITHOUT CONTRAST CLINICAL HISTORY: Dominant pain. Hypotension COMPARISON STUDY: No previous studies for comparison. TECHNIQUE: CT scan of the abdomen and pelvis was performed from the lung bases to the proximal femurs . Images are reviewed in the axial, sagittal, and coronal planes. IV contrast was not administered fo r this examination. A dose lowering technique was utilized adhering to the principles of ALARA. CT DOSE: 1330.92 mGy.cm FINDINGS: Lower chest: There is a trace right pleural effusion. There are dependent atelectatic changes. Liver: No focal hepatic masses are visualized. There is perihepatic fluid present. Gallbladder: Unremarkable. Spleen: No splenic masses are visualized. There is a small amount of perisplenic fluid. Pancreas: Unremarkable. Adrenal glands: Unremarkable. Kidneys: There is contrast excretion secondary to a CT scan performed earlier in the day. There is a left renal parapelvic cyst. There is no significant hydronephrosis. Bowel: There are multiple colonic air-fluid levels. There is bowel wall thickening involving the colo n from the mid descending level through to the rectum. Findings are consistent with a nonspecific col itis. The appendix appears normal. There is now status post gastric distention. Correlation with the patient's time of last meal is recommended. Impression outlet obstruction/stasis cannot be excluded. Peritoneum: There is mildly hyperdense free pelvic fluid. A hemorrhagic component cannot be excluded. There is a 39 mm rim calcified structure within the right mesentery. This is of uncertain etiology. Vasculature: There is evidence for aortoiliac atheromatous disease. There is displacement of intimal calcification of aorta. An aortic dissection cannot be excluded. There is no evidence of aortic aneur ysm Adenopathy: None. Pelvic viscera: The bladder, and pelvic viscera are unremarkable. Skeletal structures: No destructive osseous lesions are seen. There is a chronic deformity of the rig ht iliac crest. There is bilateral L5 spondylolysis. There is a grade 1 spinal listhesis of L5 and S1 IMPRESSION: 1. Bowel wall thickening involving the colon extending from the mid descending colon to the rectum. T his is consistent with a nonspecific colitis (ischemic versus infectious versus inflammatory) 2. Moderate gastric distention. Correlation with the patient's time of last meal is recommended. Ritchie maricel stasis/gastric outlet obstruction not excluded 3. Low volume ascites. The fluid within the pelvis is slightly hyperdense and hemorrhage cannot be ex cluded 4. The aorta demonstrates displaced intimal calcifications. A chronic dissection was be considered. T here is no aneurysmal dilatation 5. Normal appendix 6. Rim calcified 39 mm structure within the right mesentery, a finding of uncertain etiology 7. Trace right pleural effusion ACT 112: Negative or not required by law. Electronically signed by: Brett Payton M.D. 09/25/2020 7:37 AM
--- NOTE | 2020-09-25 08:08 | Critical Care Progress Note ---
Date of Service September 25, 2020 Assessment & Plan (1) Admitted to intensive care unit: (2) Acute hypotension: (3) Shock: (4) Colitis: Reason Critically Ill: 55-year-old male with near syncope event with associated hypotension not recovering with aggressive IV fluid resuscitation. Requiring vasopressor support. Requiring close hemodynamic monitoring and ongoing evaluation. Suspect infectious or ischemic colitis with associated volume loss as she is now resolved from his hypotension. Recommendations: NEURO - CAM ICU: NEGATIVE Near syncope: Suspect related to possible transient hypotension. Neurology consult pending. According to family, his mental status is back to baseline. CARDIAC/VASCULAR - Hypotension: Suspect profound hypovolemia due to GI losses. Random cortisol was normal. Initial lactate was elevated but it is decreasing with appropriate therapy. RESPIRATORY - No current issues GI/NUTRITION - Diarrheal Stool w/ LLQ abd pain: Suspect infectious versus inflammatory versus ischemic colitis with associated volume loss. Given his atherosclerotic disease, ischemic colitis would be on the differential but his pain is improved and lactate is improving with correction of his blood pressure. No indication for urgent endoscopy as long as the patient continues to improve. If he fails to improve, would consider GI consultation. Would continue empiric antibiotics to cover for possible bacterial translocation. Follow white blood cell count, fever curve, and culture data RENAL/LYTES - Hyponatremia: Suspect this is chronic. No additional work-up needed currently. On ICU electrolyte replacement protocol - Okay to discontinue Burton at this point time ENDO - Random cortisol normal. No history of diabetes. TSH normal HEME - Stable H&H ID - Diarrhea: Following cultures. Day #2 Zosyn to cover for intra-abdominal process. Procalcitonin was negative. If cultures are negative, may be able to discontinue antibiotics in the next 24 to 48 hours. LINES/IV ACCESS - PIVs x2 Foldy DVT PROPHYLAXIS - SCDs Patient's hypotension is improved and lactate is clearing. He is appropriate to transfer out of the intensive care unit to the floor. We will sign off at this point time. Thanks for the opportunity participating in the care of this patient. Feel free to contact us if we can be of additional assistance. Admission and Anticipated Discharge Date Admission Date: September 24, 2020 Subjective Patient does complain of some mild abdominal pain this morning. Otherwise complaints. He specifically denies any chest pain palpitations or shortness of breath. He is mentating at his baseline. Review of Systems Review of Systems: Unobtainable due to cognitive status Physical Exam Constitutional: WD/WN, vitals as above Neck: trachea midline, no thyromegaly Respiratory: normal respiratory effort, lungs clear to auscultation Cardiovascular: RRR, no murmur, no edema Gastrointestinal (Abdomen): Inspection/Auscultation: abdomen normal to inspection Percussion/Palpation: abdomen soft; no guarding and abdomen not rigid Musculoskeletal: Extremities: extremities normal to inspection Skin: no rashes, warm and dry Neurologic: Nonfocal exam Lymphatic: no cervical lymphadenopathy Results & Data Results & Data ([facility]) Vital Signs (Past 12 Hours) Vital Signs Temp Pulse Resp BP Pulse Ox 09/25/20 06:00 95 H 17 129/76 97 09/25/20 05:30 92 H 18 96 09/25/20 05:00 98 H 18 146/78 H 97 09/25/20 04:30 103 H 20 132/75 97 09/25/20 04:00 37.5 C 103 H 21 126/76 97 09/25/20 03:30 102 H 22 117/82 97 09/25/20 03:00 99 H 20 119/74 97 09/25/20 02:30 98 H 20 111/74 98 09/25/20 02:00 95 H 21 126/72 97 09/25/20 01:30 94 H 18 101/73 97 09/25/20 01:00 94 H 19 103/61 98 09/25/20 00:30 88 22 99/65 L 98 09/25/20 00:00 36.4 C L 86 18 101/66 98 09/24/20 23:30 86 22 98 09/24/20 23:08 76 20 102/72 99 09/24/20 22:30 77 23 97/70 L 99 09/24/20 22:17 79 24 112/72 99 09/24/20 22:00 77 20 121/66 100 09/24/20 21:47 79 19 104/72 99 09/24/20 21:30 82 22 107/60 99 09/24/20 21:17 79 24 109/78 100 09/24/20 21:00 83 17 88/51 L 99 09/24/20 20:30 92 H 22 98 09/24/20 20:17 35.5 C L 95 H 14 91/57 L 97 Laboratory Results 09/25/20 04:55 09/25/20 04:55 Diagnostic Findings No new imaging Coding Level of Care Code 75431 Subseq Hosp Care Lvl 3 Diagnoses Admitted to intensive care unit Z78.9 Acute hypotension I95.9 Shock R57.9 Colitis K52.9
[2020-09-25] MEDS ORDERED: ASPIRIN 81 MG ECTAB PO SCH (09:00)
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
[2020-09-25] MEDS: ATORVASTATIN 40 MG TAB PO SCH (09:06)
[2020-09-25] MEDS: BENZTROPINE MESYLATE 0.5 MG TAB PO SCH (09:06)
[2020-09-25] MEDS: CHOLECALCIFEROL 1,000 UNITS 25 MCG TAB PO SCH (09:06)
[2020-09-25] MEDS: CLOPIDOGREL BISULFATE 75 MG TAB PO SCH (09:06)
[2020-09-25] MEDS: FOLIC ACID 1 MG TAB PO SCH (09:07)
--- NOTE | 2020-09-25 12:49 | XCELERA ---
[id number]
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
[2020-09-25] MEDS ORDERED: traMADol HCL 50 MG TABLET PO PRN (17:28)
[2020-09-25 17:59] LABS: Hematocrit (blood only) 36.8 % (42-52); Hemoglobin 13.2 g/dL (14.0-18.0)
[2020-09-25] MEDS: ACETAMINOPHEN 325 MG TAB PO PRN (18:35)
[2020-09-25] MEDS: carBAMazepine 200 MG TABLET PO SCH ×2 (20:35→21:43)
[2020-09-25] MEDS: allopurinoL 100 MG TAB PO SCH ×2 (20:35→21:43)
[2020-09-25] MEDS: GABAPENTIN 100 MG CAP PO SCH ×2 (20:35→21:43)
[2020-09-25] MEDS: MIRTAZAPINE TAB 15 MG TAB PO SCH ×2 (20:36→21:43)
[2020-09-25] MEDS: PANTOprazole 40 MG in SYRINGE 0 ML IV SCH (20:36)
[2020-09-25] MEDS: OLANZapine 5 MG TABLET PO SCH ×2 (20:36→21:44)
[2020-09-25] MEDS ORDERED: ONDANSETRON INJ 2 MG/ML 2 ML VIAL IV PRN (21:02)
[2020-09-26] MEDS: PIPERACILLIN/TAZOBACTAM 3.375 GM in DEXTROSE 5% 100 ML IV SCH ×3 (05:44→21:54)
[2020-09-26 06:33] LABS: Hematocrit (blood only) 34.7 % (42-52); Hemoglobin 12.3 g/dL (14.0-18.0); Mean Corpuscular Hemoglobin 33.1 pg (25-34); Mean Corpuscular Hgb Conc 35.4 g/dL (32-36); Mean Corpuscular Volume 93.3 fL (80-100); Mean Platelet Volume 9.6 fL (7.4-10.4); Platelet Count 243 K/uL (130-400); RDW Coefficient of Variation 13.5 % (11.5-14.5); RDW Standard Deviation 46.3 fL (36.4-46.3); Red Blood Count 3.72 M/uL (4.7-6.1); White Blood Count 14.22 K/uL (4.8-10.8)
[2020-09-26 07:10] LABS: BUN Creatinine Ratio 13.7 (10-20); Calcium 8.5 mg/dl (8.5-10.1); Creatinine Clr Calc Pharmacy 98.3 ml/min; Est GFR (Non-African American) 93.2; Potassium 3.8 mmol/L (3.5-5.1)
[2020-09-26] MEDS: carBAMazepine 200 MG TABLET PO SCH ×2 (07:34→20:42)
[2020-09-26] MEDS: SERTRALINE HCL 50 MG TABLET PO SCH (07:34)
[2020-09-26] MEDS: GABAPENTIN 100 MG CAP PO SCH ×2 (07:34→20:41)
[2020-09-26] MEDS: FOLIC ACID 1 MG TAB PO SCH (07:35)
[2020-09-26] MEDS: CHOLECALCIFEROL 1,000 UNITS 25 MCG TAB PO SCH (07:35)
[2020-09-26] MEDS: BENZTROPINE MESYLATE 0.5 MG TAB PO SCH (07:35)
[2020-09-26] MEDS: ATORVASTATIN 40 MG TAB PO SCH (07:35)
[2020-09-26] MEDS: allopurinoL 100 MG TAB PO SCH ×2 (07:35→20:43)
[2020-09-26] MEDS: PANTOprazole 40 MG in SYRINGE 0 ML IV SCH ×2 (07:35→20:43)
[2020-09-26] MEDS: CLOPIDOGREL BISULFATE 75 MG TAB PO SCH (07:35)
[2020-09-26] MEDS: THIAMINE HCL 100 MG TAB PO SCH (07:36)
[2020-09-26] MEDS: OLANZapine 5 MG TABLET PO SCH (20:41)
[2020-09-26] MEDS: MIRTAZAPINE TAB 15 MG TAB PO SCH (21:09)
[2020-09-26] MEDS: ACETAMINOPHEN 325 MG TAB PO PRN (21:13)
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
[2020-09-27] MEDS: PIPERACILLIN/TAZOBACTAM 3.375 GM in DEXTROSE 5% 100 ML IV SCH (06:19)
[2020-09-27] MEDS: CLOPIDOGREL BISULFATE 75 MG TAB PO SCH (08:39)
[2020-09-27] MEDS: PANTOprazole 40 MG in SYRINGE 0 ML IV SCH (08:40)
[2020-09-27] MEDS: SERTRALINE HCL 50 MG TABLET PO SCH (08:40)
[2020-09-27] MEDS: allopurinoL 100 MG TAB PO SCH (08:40)
[2020-09-27] MEDS: carBAMazepine 200 MG TABLET PO SCH (08:40)
[2020-09-27] MEDS: GABAPENTIN 100 MG CAP PO SCH (08:40)
[2020-09-27] MEDS: ATORVASTATIN 40 MG TAB PO SCH (08:41)
[2020-09-27] MEDS: BENZTROPINE MESYLATE 0.5 MG TAB PO SCH (08:41)
[2020-09-27] MEDS: FOLIC ACID 1 MG TAB PO SCH (08:41)
[2020-09-27] MEDS: THIAMINE HCL 100 MG TAB PO SCH (08:41)
[2020-09-27] MEDS: CHOLECALCIFEROL 1,000 UNITS 25 MCG TAB PO SCH (08:41)
[2020-09-27 09:01] LABS: Basophils # (auto) 0.01 K/uL (0-0.2); Basophils % (auto) 0.1 %; Hematocrit (blood only) 35.6 % (42-52); Hemoglobin 12.2 g/dL (14.0-18.0); Immature Granulocytes # (auto) 0.01 K/uL (0.00-0.02); Immature Granulocytes % (auto) 0.1 %; Lymphocytes # (auto) 0.84 K/uL (1.2-3.4); Lymphocytes % (auto) 7.6 %; Mean Corpuscular Hemoglobin 33.4 pg (25-34); Mean Corpuscular Hgb Conc 34.3 g/dL (32-36); Mean Corpuscular Volume 97.5 fL (80-100); Mean Platelet Volume 9.2 fL (7.4-10.4); Monocytes % (auto) 5.4 %; Neutrophils # (auto) 9.65 K/uL (1.4-6.5); Neutrophils % (auto) 86.8 %; Platelet Count 231 K/uL (130-400); RDW Coefficient of Variation 13.4 % (11.5-14.5); RDW Standard Deviation 48.1 fL (36.4-46.3); Red Blood Count 3.65 M/uL (4.7-6.1); White Blood Count 11.11 K/uL (4.8-10.8)
[2020-09-27 09:17] LABS: BUN Creatinine Ratio 15.1 (10-20); Calcium 8.9 mg/dl (8.5-10.1); Est GFR (African American) 91.9; Est GFR (Non-African American) 79.3; Potassium 3.9 mmol/L (3.5-5.1)
[2020-09-27] MEDS ORDERED: AMOXICILLIN/CLAVULANATE 875 MG TAB PO SCH (14:00)
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
--- NOTE | 2020-10-08 13:13 | Coding Query ---
To promote full compliance with coding requirements relating to patient care, provider participation is requested in all cases of dub room engineer uncertainty. Please assist us with the question(s) below: Coding Question(s): The diagnosis below was documented in the 09/25/20 Critical Care Progress Note, then subsequently fell off all further documentation. Please indicate if it is still a possible diagnosis or ruled out. Physician's Response(s): SHOCK ( x ) Diagnosed and POA ( ) Diagnosed and not POA ( ) Ruled out ( ) Other (please specify) IF SHOCK IS DIAGNOSED, PLEASE SPECIFY BELOW, IN YOUR CLINICAL OPINION, REGARDING SHOCK: ( x ) Hypovolemic Shock ( ) Unspecified Shock ( ) Other Shock: Please Specify MTDD
--- NOTE | 2020-10-08 13:17 | Coding Query ---
CODING QUERY To promote full compliance with coding requirements relating to patient care, provider participation is requested in all cases of pit crew support worker uncertainty. Please assist us with the question(s) below: Coding Question(s): Hypotension is documented through the record and on Discharge Summary as Hypotension possible due to GI losses. Please specify below, in your clinical opinion, regarding Hypotension. ( ) Hypotension, Unspecified - possibly due to GI losses (x ) Hypotension, Orthostatic - possibly due to GI loses ( ) Hypotension, Other: Please Specify Physician's Response(s): Thank you Aleena Barillas Principal Diagnosis: "that condition established after study, to be chiefly responsible for occasioning the admission of the patient to the hospital for care." Co-Existing Principal Diagnosis: "when two or more diagnoses equally meet the criteria for principal diagnosis as determined by the circumstances of admission, diagnostic work up, and/or therapy provided, and the Alphabetic Index, Tabular List, or another coding guideline does not provide sequencing direction, any one of the diagnoses may be sequenced first." "When the physician has documented what appears to be a current diagnosis in the body of the record, but has not included the diagnosis in the final diagnostic statement, the physician should be asked whether the diagnosis should be added." (Source [facility]oding [facility] 2 QTR90. p3-4) SAJAN
--- NOTE | 2020-10-08 13:25 | Coding Query ---
CODING QUERY To promote full compliance with coding requirements relating to patient care, provider participation is requested in all cases of strength and conditioning coach uncertainty. Please assist us with the question(s) below: Coding Question(s): There is documentation in the record and on Discharge Summary of Diarrhea with documentation of, "Diarrhea: CT a/p on 09/24 showed "Bowel wall thickening involving the colon extending from the mid descending colon to the rectum." Thought to be infectious vs. inflammatory vs. ischemic colitis. C. diff negative. - Given this is acute onset with non-bloody stools (RN reports normal brown) & the fact that he's in a group-living situation, most likely to be a viral colitis. - Continue Zosyn for now - Stool culture from 09/24 preliminary negative. -Diarrhea was improved. -will continue antibiotics for 5 more days", and further down on the Discharge Summary under Addtl Attending Provider Instructions is documentation of, "You also was found to have diarrhea. This has improved. You had an elevated white blood count which also is improving. Will recommend to continue antibiotics for 5 more days given that this may be a bacterial infection.". Please specify below, to specify the possible bacterial infection treated with antibiotics/Zosyn. (x ) Possible Bacterial Colitis/Enteritis was treated with antibiotics/Zosyn ( ) Possible Other Infection was treated with antibiotics/Zosyn. Please Specify ( ) Unspecified bacterial infection was treated with antibiotics/Zosyn ( ) No Bacterial Infection was treated - this is Ruled-Out Physician's Response(s): Thank you Aleena Barillas Principal Diagnosis: "that condition established after study, to be chiefly responsible for occasioning the admission of the patient to the hospital for care." Co-Existing Principal Diagnosis: "when two or more diagnoses equally meet the criteria for principal diagnosis as determined by the circumstances of admission, diagnostic work up, and/or therapy provided, and the Alphabetic Index, Tabular List, or another coding guideline does not provide sequencing direction, any one of the diagnoses may be sequenced first." "When the physician has documented what appears to be a current diagnosis in the body of the record, but has not included the diagnosis in the final diagnostic statement, the physician should be asked whether the diagnosis should be added." (Source [facility]oding [facility] 2 QTR90. p3-4) MTDD
== END 2020-09-27 13:18 | DRG 371 ==
LOC: ED 15:39 → SUATTDRO 18:50 → 1E 18:50 → 2N 09-25 17:25